=== PATIENT | male | born 1960 | race Caucasian/White ===

== ENCOUNTER 2019-03-18 08:07 | Day surgery (SDC) | payer BC ==
[2019-03-18] MEDS ORDERED: ONDANSETRON 4 MG/2 ML INJ IV PRN (08:57)
[2019-03-18] MEDS ORDERED: fentaNYL 100 MCG/2 ML INJ IV PRN (08:57)
[2019-03-18] MEDS ORDERED: LACTATED RINGERS 1,000 ML IV SCH ×2 (09:00)
--- NOTE | 2019-03-18 09:00 | Anesthesia Day of Surgery ---
Anesthesia Day of Surgery - Day of Surgery Patient Examined: Yes Patient H&P Reviewed: Yes Patient is NPO: Yes
--- NOTE | 2019-03-18 09:04 | Anesthesia Consultation ---
Anesthesia Consult and Med Hx Date of service: 03/18/19 - Airway Anesthetic Teeth Evaluation: Poor ROM Head & Neck: Adequate Mental/Hyoid Distance: Adequate Mallampati Class: Class I - Pulmonary Exam CTA: Yes - Cardiac Exam Cardiac Exam: RRR - Pre-Operative Health Status ASA Pre-Surgery Classification: ASA3 Proposed Anesthetic Plan: General - Pulmonary Hx Smoking: Yes (STOPPED 2007) Hx Asthma: No COPD: No Hx Sleep Apnea: No (SANGEETA PRE SCREEN HIGH RISK) - Cardiovascular System Hx Hypertension: Yes Hx Coronary Artery Disease: No Hx Heart Attack/AMI: No Hx Heart Murmur: No - Central Nervous System Hx Neuromuscular Disorder: No Hx Psychiatric Problems: No - Gastrointestinal Hx Gastroesophageal Reflux Disease: Yes (controlled) - Endocrine Hx End Stage Renal Disease: No Hx Non-Insulin Dependent Diabetes: Yes Hx Hyperthyroidism: No - Hematic Hx Anemia: No Hx Sickle Cell Disease: No - Other Systems Hx Alcohol Use: No Hx Substance Use: No Hx Cancer: No
[2019-03-18] MEDS ORDERED: ceFAZolin/STERILE WATER 2 GM/20 ML SYRINGE IV NR (09:25)
[2019-03-18] MEDS ORDERED: propofoL 200 MG/20 ML VIAL IV ONE (09:28)
[2019-03-18] MEDS ORDERED: fentaNYL 100 MCG/2 ML INJ ONE ×2 (09:28→10:49)
[2019-03-18] MEDS ORDERED: LIDOCAINE MPF (2%) 20 MG/1 ML VIAL 5 ML ONE (09:31)
[2019-03-18] MEDS ORDERED: ONDANSETRON 4 MG/2 ML INJ ONE (10:08)
[2019-03-18] MEDS ORDERED: WATER FOR IRRIG STERILE 1,500 ML BOTTLE IR ONE (10:10)
[2019-03-18] MEDS ORDERED: WATER FOR IRRIG STERILE 2000 ML IR ONE (10:11)
--- NOTE | 2019-03-18 10:37 | Post Operative Note ---
Date of procedure: 03/18/19 Pre-op diagnosis: servere bxo stricture Post-op diagnosis: same Findings: as above Procedure: cysto dviu dil circ Anesthesia: GETA Surgeon: ANNA JEAN BAPTISTE Estimated blood loss: minimal Pathology: list (skin) Specimen disposition: to lab Condition: stable Disposition: PACU
--- NOTE | 2019-03-18 10:38 | Discharge Summary ---
Short Stay Discharge Plan Activity: other (inc fluids no sex ) Weight Bearing Status: Full Weight Bearing Diet: low fat, low cholesterol, low salt Special Instructions: other (poole care ) Durable Medical Equipment Needed Upon Discharge: other (poole ) Follow up with: MANPREET ORDOÑEZ MD [Primary Care Provider] - 7 Days ANNA JEAN BAPTISTE MD [Staff Physician] - 10 Days
--- NOTE | 2019-03-18 11:20 | XRay Report ---
Abdomen one fluoroscopic view. HISTORY: Urethral stricture. FINDINGS: Reported urethral dilatation with catheter placement. Fluoroscopy time: 22 seconds. 4 fluoroscopic images were obtained. Signer Name: Spike Carmona MD Signed: 03/18/2019 11:16 AM Workstation Name: [id number]
--- NOTE | 2019-03-18 12:01 | Operative Report ---
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 POSTOPERATIVE DIAGNOSES: Severe balanitis, xerotica obliterans with meatal stenosis and urethral stricture. PROCEDURE: Urethral dilatation, direct vision internal urethrotomy, cystoscopy with a revision of circumcision and excision of severe scarring around the meatus. SURGEON: Dr. Osorio. ANESTHESIA: General. FINDINGS: This is a gentleman with severe balanitis xerotica obliterans. He now presents for treatment. His meatus tiny the urine sprays. He has stricture disease and severe stenosis. DESCRIPTION OF PROCEDURE: The patient was brought to the operating room and placed on the operating table. Following induction of anesthesia, placed in lithotomy position, prepped and draped in usual sterile fashion. Meatus was very, very small. We placed a wire into the bladder under fluoroscopic guidance and we dilated partially and we were able to do a DVIU per the distal 3 cm with severe scar. After we opened this up, we were able to get the cystoscope in the bladder. We then placed a 20 [place] catheter over the wire. At this point, once this was done, two circumferential incisions were made, one close to the meatus and a large amount of this real thick white scar tissue was excised. We had plenty of skin to move, but the glans is scarred and irritated and erythematous. There were no lesions that were suspicious. The patient tolerated the procedure well. The skin was excised and reconstruction was accomplished with 4-0 and 3-0 chromic. The patient tolerated the procedure well. Minimal blood loss. He was brought to recovery in stable condition. JOB# [id number] ELLA/DOMINICK
[2019-03-18] MEDS: HYDROmorphone 1 MG/1 ML INJ IV PRN ×2 (12:06→12:15)
[2019-03-18] MEDS ORDERED: HYDROcodone/ACETAMINOPHEN 5-325 MG TAB PO PRN (13:30)
[2019-03-18 13:54] VITALS: BP 158/88
--- NOTE | 2019-03-18 23:12 | Post Anesthesia Evaluation ---
- Post Anesthesia Evaluation Patient Participated: Yes Airway Patent: Yes Stable Respiratory Function: Yes Nausea/Vomiting: No Temp > 96.8F: Yes Pain Manageable: Yes Adequeate Hydration: Yes Anesthesia Complications: No Block Receding Appropriately: Not Applicable Patient on Ventilator: No
== END 2019-03-18 08:08 | disposition home or self-care (01) ==
LOC: OR 08:07
PROVIDERS: ATTEND Urology
DX: N35.012 Post-traumatic membranous urethral stricture (principal); N48.0 Leukoplakia of penis; K21.9 Gastro-esophageal reflux disease without esophagitis; E11.9 Type 2 diabetes mellitus without complications; I10 Essential (primary) hypertension; Z71.3 Dietary counseling and surveillance; Z87.891 Personal history of nicotine dependence; Z79.899 Other long term (current) drug therapy
CPT/HCPCS: 52276; 54163; 74018; 82962; 88304; A4217; C1726; C1769; J0690; J1170; J2405; J2704; J3010; J7120

== ENCOUNTER 2019-06-19 21:19 | Inpatient (IN) | payer BC ==
[2019-06-19 22:20] LABS: Basophils # (Auto) 0.1 K/mm3 (0.0-0.1); Basophils % (Auto) 0.4 % (0.0-1.8); Eosinophils # (Auto) 0.3 K/mm3 (0.0-0.4); Eosinophils % (Auto) 1.5 % (0.0-4.3); Hematocrit 37.5 % (35.5-45.6); Hemoglobin 12.4 gm/dl (11.8-15.2); Lymphocytes # (Auto) 4.4 K/mm3 (1.2-5.4); Lymphocytes % (Auto) 24.3 % (13.4-35.0); Mean Corpuscular HGB Conc 33 % (32-34); Mean Corpuscular Volume 83 fl (84-94); Monocytes # (Auto) 1.5 K/mm3 (0.0-0.8); Monocytes % (Auto) 8.5 % (0.0-7.3); Platelet Count 286 K/mm3 (140-440); Red Cell Distribution Width 14.8 % (13.2-15.2)
[2019-06-19 22:43] LABS: Bilirubin,Urine NEG (Negative); Blood,Urine SM (Negative); Color,Urine Yellow (Yellow); Protein,Urine <15 mg/dL mg/dL (Negative)
[2019-06-19 22:44] LABS: Alanine Aminotransferase 15 units/L (7-56); Albumin 3.9 g/dL (3.9-5); BUN/Creatinine Ratio 23; Blood Urea Nitrogen 21 mg/dL (9-20); Calcium 9.4 mg/dL (8.4-10.2); Hemolysis Index 5
[2019-06-19 22:55] LABS: WBC,Urine > 182.0 /HPF (0.0-6.0)
--- NOTE | 2019-06-19 23:06 | Ultrasound Report ---
Scrotal Ultrasound HISTORY: bilateral testicular edema. TECHNIQUE: Grayscale and color imaging performed. COMPARISON: None FINDINGS: Both testicles are normal in size and appearance with preserved blood flow. There are small bilateral hydroceles which are simple in appearance. A 4 mm cyst is seen in the left epididymal head . Right epididymis is normal. IMPRESSION: 1. Small bilateral hydroceles, ultimately nonspecific but could be reactive. 2. Tiny simple left epididymal head cyst, benign. Signer Name: Pierre Munoz MD Signed: 06/19/2019 11:02 PM Workstation Name: [id number]
--- NOTE | 2019-06-19 23:27 | Emergency Department Report ---
ED Male HPI - General Chief complaint: Urogenital-Male Stated complaint: SWOLLEN TESTICLE Time Seen by Provider: 06/19/19 23:12 Source: patient Mode of arrival: Ambulatory Limitations: No Limitations - History of Present Illness Initial comments: Patient is a 58-year-old male that presents emergency room with complaints of testicular pain. Patient states he has had both testicle swollen for 3 days and fever. Patient denies cough. Patient denies shortness of breath. Patient denies chest pain. Patient states the pain is a 10 out of 10. Patient states the pain is worse with movement and better with rest. Patient denies nausea vomiting. Patient denies dysuria. MD Complaint: testicle pain, testicle swelling -: Sudden, days(s) Location: right testicle, left testicle Radiation: none Severity: severe Severity scale (0 -10): 10 Quality: sharp Consistency: constant Improves with: rest Worsens with: palpation, movement swelling. denies: discharge, mass, rash, urinary retention, blood in urine, dysuria, fever, nausea/vomiting, incontinence - Related Data Sexually active: Yes Home Medications Medication Instructions Recorded Confirmed Last Taken Sulfamethoxazole/Trimethoprim 1 tab PO BID 12/01/17 03/18/19 03/17/19 10:00 [Bactrim DS TAB] Tamsulosin [Flomax] 0.4 mg PO QDAY 12/01/17 03/18/19 03/16/19 21:00 Tramadol HCl/Acetaminophen 1 each PO Q6HR PRN 12/01/17 03/18/19 03/17/19 14:00 [Ultracet] glipiZIDE [Glipizide] 5 mg PO QDAY 12/01/17 03/18/19 03/17/19 10:00 Allergies Allergy/AdvReac Type Severity Reaction Status Date / Time No Known Allergies Allergy Verified 06/19/19 21:31 ED Review of Systems ROS: Stated complaint: SWOLLEN TESTICLE Other details as noted in HPI Constitutional: denies: chills, fever Eyes: denies: eye pain, eye discharge, vision change ENT: denies: ear pain, throat pain Respiratory: denies: cough, shortness of breath, wheezing Cardiovascular: denies: chest pain, palpitations Endocrine: no symptoms reported Gastrointestinal: denies: abdominal pain, nausea, diarrhea Genitourinary: as per HPI, other. denies: urgency, dysuria Musculoskeletal: denies: back pain, joint swelling, arthralgia Skin: denies: rash, lesions Neurological: denies: headache, weakness, paresthesias Psychiatric: denies: anxiety, depression Hematological/Lymphatic: denies: easy bleeding, easy bruising ED Past Medical Hx - Past Medical History Previous Medical History?: Yes Hx Hypertension: Yes Hx Heart Attack/AMI: No Hx Congestive Heart Failure: No Hx Diabetes: Yes Hx Sickle Cell Disease: No Hx Arthritis: No Hx Asthma: No Hx COPD: No Hx Tuberculosis: No Hx HIV: No - Surgical History Past Surgical History?: Yes Additional Surgical History: circumcised 03/2019 - Family History Family history: no significant - Social History Smoking Status: Never Smoker Substance Use Type: None - Medications Home Medications: Home Medications Medication Instructions Recorded Confirmed Last Taken Type Sulfamethoxazole/Trimethoprim 1 tab PO BID 12/01/17 03/18/19 03/17/19 10:00 History [Bactrim DS TAB] Tamsulosin [Flomax] 0.4 mg PO QDAY 12/01/17 03/18/19 03/16/19 21:00 History Tramadol HCl/Acetaminophen 1 each PO Q6HR PRN 12/01/17 03/18/19 03/17/19 14:00 History [Ultracet] glipiZIDE [Glipizide] 5 mg PO QDAY 12/01/17 03/18/19 03/17/19 10:00 History ED Physical Exam - General Limitations: No Limitations General appearance: alert, in no apparent distress - Head Head exam: Present: atraumatic, normocephalic - Eye Eye exam: Present: normal appearance - ENT ENT exam: Present: mucous membranes moist - Neck Neck exam: Present: normal inspection - Respiratory Respiratory exam: Present: normal lung sounds bilaterally. Absent: respiratory distress - Cardiovascular Cardiovascular Exam: Present: regular rate, normal rhythm. Absent: systolic murmur, diastolic murmur, rubs, gallop - GI/Abdominal GI/Abdominal exam: Present: soft, normal bowel sounds - Rectal Rectal exam: Present: deferred - exam: Present: testicular tenderness, scrotal swelling, other (Swelling extending into the perineum. Area hard and tender. Nonfluctuant) - Extremities Exam Extremities exam: Present: normal inspection - Back Exam Back exam: Present: normal inspection - Neurological Exam Neurological exam: Present: alert, oriented X3 - Psychiatric Psychiatric exam: Present: normal affect, normal mood - Skin Skin exam: Present: warm, dry, intact, normal color. Absent: rash ED Course - Reevaluation(s) Reevaluation #1: I discussed all results with patient. I discussed plan of care with patient. Patient agrees with plan of care and admission. Patient to be admitted to the hospitalist service. 06/20/19 00:50 - Consultations Consultation #1: General surgery paged. 06/20/19 00:43 I discussed case with Dr. Wu. Dr. Wu recommends admission, IV antibiotics and n.p.o. now. 06/20/19 00:57 Consultation #2: Hospitalist consulted for admission. Hospitalist to admit patient. 06/20/19 01:01 ED Medical Decision Making - Lab Data Result diagrams: 06/19/19 22:00 06/19/19 22:00 - Radiology Data Radiology results: report reviewed Scrotal Ultrasound HISTORY: bilateral testicular edema. TECHNIQUE: Grayscale and color imaging performed. COMPARISON: None FINDINGS: Both testicles are normal in size and appearance with preserved blood flow. There are small bilateral hydroceles which are simple in appearance. A 4 mm cyst is seen in the left epididymal head. Right epididymis is normal. IMPRESSION: 1. Small bilateral hydroceles, ultimately nonspecific but could be reactive. 2. Tiny simple left epididymal head cyst, benign. CT ABDOMEN AND PELVIS WITH CONTRAST HISTORY: MAIN: scrotal swelling, WBC 18K, r/o abscess pain x1day [id number] 100ml. COMPARISON: Scrotal ultrasound from today TECHNIQUE: CT images of the abdomen and pelvis were obtained following admin istration of intravenous contrast. All CT scans at this location are performed using CT dose reduction for ALARA by means of automated exposure control. CONTRAST: 100 ml of intravenous contrast administered. FINDINGS: Lungs/bones: Lung bases are clear. Degenerative changes are present in the spine and pelvis with no acute osseous abnormality identified. Abdomen/pelvis: There is mild nonspecific stranding about the kidneys with lobulation and full- thickness cortical thinning suggesting scarring. Mild urothelial enhancement is seen bilaterally and there is mild circumferential wall thickening involving the urinary bladder which is distended and indented at the base by a slightly enlarged prostate. There is skin induration and a small collection along the inferior margin of the scrotum. The collection measures 2.6 x 1.7 cm on image #200 of series #2. There is mild surrounding soft tissue swelling. Small bilateral hydroceles were better visualized on the comparison u ltrasound. This small collection is essentially at the level of the perineum and adjacent to the anus right of midline. The liver, gallbladder, spleen, pancreas, adrenals, and proximal GI tract appear unremarkable. No acute colonic abnormality identified. The appendix and terminal ileum appear normal. IMPRESSION: 1. Perineal collection as outlined above, most likely an abscess with mild bocanegra rrounding inflammation. 2. Renal and collecting system findings as outlined above. There is likely a component of chronic urinary outlet obstruction with prostatomegaly indenting the bladder base, smooth circumferential bladder wall thickening, and additional renal/collecting system findings as above. - Medical Decision Making Patient is a 58-year-old male that presents emergency room with complaints of testicular and scrotal pain. On exam patient found to have scrotal swelling and cellulitis extending back to the perineum. Patient had an ultrasound done which shows no acute torsion. Patient had a CT with IV contrast. CT shows perinephric stranding, perineal abscess, enlarged prostate with outlet obstruction and inflammation of the bladder. Patient had labs done which showed an elevated WBC rest of labs essentially unremarkable. General surgery consulted for management of the perineal abscess. Patient clinical findings are consistent with pyelonephritis, UTI and scrotal and peritoneal abscess. Patient will require inpatient management for IV antibiotics and consults of our general surgery and possible urologist. Patient given IV antibiotics in the ER along with fluids. - Differential Diagnosis Testicular pain, scrotal abscess, perineal abscess, epididymitis. UTI Critical Care Time: Yes Critical care time in (mins) excluding proc time.: 35 Critical care attestation.: If time is entered above; I have spent that time in minutes in the direct care of this critically ill patient, excluding procedure time. Critical Care Time: 35 minutes ED Disposition Clinical Impression: Testicular pain, unspecified, Scrotal swelling, Perineal abscess, Pyelonephritis Elevated WBC count Qualifiers: Leukocytosis type: unspecified Qualified Code(s): D72.829 - Elevated white blood cell count, unspecified UTI (urinary tract infection) Qualifiers: Urinary tract infection type: acute cystitis Hematuria presence: with hematuria Qualified Code(s): N30.01 - Acute cystitis with hematuria Disposition: OP ADMIT IP TO THIS HOSP Is pt being admited?: Yes Does the pt Need Aspirin: No Condition: Critical Referrals: PRIMARY CARE, [Primary Care Provider] - 3-5 Days Time of Disposition: 00:42
--- NOTE | 2019-06-20 00:14 | Cat Scan Report ---
CT ABDOMEN AND PELVIS WITH CONTRAST HISTORY: MAIN: scrotal swelling, WBC 18K, r/o abscess pain x1day [id number] 100ml. COMPARISON: Scrotal ultrasound from today TECHNIQUE: CT images of the abdomen and pelvis were obtained following administration of intravenous contrast. All CT scans at this location are performed using CT dose reduction for ALARA by means of automated exposure control. CONTRAST: 100 ml of intravenous contrast administered. FINDINGS: Lungs/bones: Lung bases are clear. Degenerative changes are present in the spine and pelvis with no acute osseous abnormality identified. Abdomen/pelvis: There is mild nonspecific stranding about the kidneys with lobulation and full-thick ness cortical thinning suggesting scarring. Mild urothelial enhancement is seen bilaterally and there is mild circumferential wall thickening involving the urinary bladder which is distended and indente d at the base by a slightly enlarged prostate. There is skin induration and a small collection along the inferior margin of the scrotum. The collect ion measures 2.6 x 1.7 cm on image #200 of series #2. There is mild surrounding soft tissue swelling. Small bilateral hydroceles were better visualized on the comparison ultrasound. This small collectio n is essentially at the level of the perineum and adjacent to the anus right of midline. The liver, gallbladder, spleen, pancreas, adrenals, and proximal GI tract appear unremarkable. No acute colonic abnormality identified. The appendix and terminal ileum appear normal. IMPRESSION: 1. Perineal collection as outlined above, most likely an abscess with mild surrounding inflammation. 2. Renal and collecting system findings as outlined above. There is likely a component of chronic uri nary outlet obstruction with prostatomegaly indenting the bladder base, smooth circumferential bladde r wall thickening, and additional renal/collecting system findings as above. Signer Name: Pierre Munoz MD Signed: 06/20/2019 12:09 AM Workstation Name: [id number]
[2019-06-20] MEDS ORDERED: CLINDAMYCIN 300 MG/50 mL 300 MG/50 ML BAG IV ONE (00:40)
[2019-06-20] MEDS ORDERED: SODIUM CHLORIDE 0.9% 1000 ML 1,000 ML IV ONE (00:54)
[2019-06-20] MEDS ORDERED: cefTRIAXone/NS 1 GM/50 ML 1 GM/50 ML BAG IV ONE ×2 (01:02→01:50)
[2019-06-20] MEDS ORDERED: MAGNESIUM HYDROXIDE (MOM) ORAL LIQD UDC PO PRN (01:37)
[2019-06-20] MEDS ORDERED: DEXTROSE 50% IN WATER (25GM) 50 ML SYRINGE IV PRN (01:37)
[2019-06-20] MEDS ORDERED: ONDANSETRON 4 MG/2 ML INJ IV PRN (01:37)
[2019-06-20] MEDS ORDERED: MORPHINE 2 MG/1 ML INJ IV PRN (01:37)
[2019-06-20] MEDS ORDERED: ACETAMINOPHEN 325 MG TAB PO PRN (01:37)
--- NOTE | 2019-06-20 01:47 | History and Physical Report ---
History of Present Illness Date of examination: 06/20/19 Date of admission: 06/20/2019 Chief complaint: Testicular pain Fever History of present illness: 58-year-old male with known history of hypertension and diabetes mellitus presenting to the emergency room today complaining of testicular pain and fever which has been ongoing for about 3 days. Patient denies any hematuria or dysuria, denies any nausea vomiting, no abdominal pain. He denies any chest pain or shortness of breath. On a scale of 10 pain was about 10/10 and is worse on movement. Work-up in the urgency room including CT of the abdomen and pelvis reveals perineal abscess. Past History Past Medical History: diabetes, hypertension Past Surgical History: Other (Circumcision in March 2019) Social history: no significant social history Family history: no significant family history Medications and Allergies Allergies Allergy/AdvReac Type Severity Reaction Status Date / Time No Known Allergies Allergy Verified 06/19/19 21:31 Home Medications Medication Instructions Recorded Confirmed Last Taken Type Sulfamethoxazole/Trimethoprim 1 tab PO BID 12/01/17 03/18/19 03/17/19 10:00 History [Bactrim DS TAB] Tamsulosin [Flomax] 0.4 mg PO QDAY 12/01/17 03/18/19 03/16/19 21:00 History Tramadol HCl/Acetaminophen 1 each PO Q6HR PRN 12/01/17 03/18/19 03/17/19 14:00 History [Ultracet] glipiZIDE [Glipizide] 5 mg PO QDAY 12/01/17 03/18/19 03/17/19 10:00 History Active Meds: Active Medications Acetaminophen (Tylenol) 650 mg PO Q4H PRN PRN Reason: Pain MILD(1-3)/Fever >100.5/ELIZABETH Dextrose (D50w (25gm) Syringe) 50 ml IV Q30MIN PRN; Protocol PRN Reason: Hypoglycemia Sodium Chloride (Nacl 0.9% 1000 Ml) 1,000 mls @ 999 mls/hr IV BOLUS ONE Stop: 06/20/19 01:54 Last Admin: 06/20/19 01:12 Dose: 999 mls/hr Documented by: Sodium Chloride (Nacl 0.9% 1000 Ml) 1,000 mls @ 125 mls/hr IV DIRECT MANISHA Ceftriaxone Sodium (Rocephin/Ns 1 Gm/50 Ml) 1 gm in 50 mls @ 100 mls/hr IV Q24HR MANISHA; Protocol Clindamycin HCl (Cleocin 600 Mg/50 Ml) 600 mg in 50 mls @ 100 mls/hr IV Q8HR MANISHA; Protocol Insulin Human Lispro (Humalog) 0 unit SUB-Q ACHS MANISHA; Protocol Magnesium Hydroxide (Milk Of Magnesia) 30 ml PO Q4H PRN PRN Reason: Constipation Morphine Sulfate (Morphine) 2 mg IV Q4H PRN PRN Reason: Pain, Moderate (4-6) Ondansetron HCl (Zofran) 4 mg IV Q8H PRN PRN Reason: Nausea And Vomiting Sodium Chloride (Sodium Chloride Flush Syringe 10 Ml) 10 ml IV BID MANISHA Sodium Chloride (Sodium Chloride Flush Syringe 10 Ml) 10 ml IV PRN PRN PRN Reason: LINE FLUSH Review of Systems Constitutional: no fever, no chills Ears, nose, mouth and throat: no sore throat, no vertigo Cardiovascular: no chest pain, no orthopnea, no palpitations Respiratory: no cough, no shortness of breath Gastrointestinal: no abdominal pain, no nausea, no vomiting, no diarrhea Genitourinary Male: no dysuria, no hematuria, no urinary frequency, no urinary hesitancy Musculoskeletal: no neck pain, no low back pain Integumentary: no rash, no pruritis Neurological: no headaches, no change in mentation Endocrine: no excessive thirst, no polydipsia, no polyuria Exam - Constitutional Vitals: Temp Pulse Resp BP Pulse Ox 98 F 92 H 16 131/76 97 06/20/19 01:36 06/20/19 01:36 06/20/19 01:36 06/20/19 01:36 06/20/19 01:36 General appearance: Present: no acute distress, well-nourished - EENT Eyes: Present: PERRL, EOM intact ENT: hearing intact, clear oral mucosa, dentition normal - Neck Neck: Present: supple, normal ROM - Respiratory Respiratory effort: normal Respiratory: bilateral: CTA - Cardiovascular Rhythm: regular Heart Sounds: Present: S1 & S2 - Extremities Extremities: no ischemia, pulses intact, pulses symmetrical, No edema, Full ROM Peripheral Pulses: within normal limits - Abdominal General gastrointestinal: Present: soft, non-tender, non-distended, normal bowel sounds Male genitourinary: Present: tender (Tenderness in the posterior aspect of the scrotum, swelling in the perineum) - Integumentary Integumentary: Present: clear, warm, dry - Psychiatric Psychiatric: appropriate mood/affect, intact judgment & insight, cooperative - Neurologic Neurologic: CNII-XII intact, moves all extremities Results - Labs CBC & Chem 7: 06/19/19 22:00 06/19/19 22:00 Labs: Abnormal lab results 06/19/19 06/19/19 06/19/19 Range/Units 22:00 22:00 Unknown WBC 18.2 H (4.5-11.0) K/mm3 MCV 83 L (84-94) fl [place] % (Auto) 8.5 H (0.0-7.3) % [place] # 1.5 H (0.0-0.8) K/mm3 Seg Neutrophils # 11.9 H (1.8-7.7) K/mm3 Sodium 133 L (137-145) mmol/L Carbon Dioxide 21 L (22-30) mmol/L BUN 21 H (9-20) mg/dL Glucose 109 H (75-100) mg/dL Urine WBC (Auto) > 182.0 H (0.0-6.0) /HPF Assessment and Plan - Patient Problems (1) Perineal abscess Current Visit: Yes Status: Acute Plan to address problem: Patient started on empiric IV antibiotics. Consult has been placed to the general surgeon for further evaluation and recommendation. (2) Pyelonephritis Current Visit: Yes Status: Acute Plan to address problem: Patient on empiric IV IV antibiotics. (3) DVT prophylaxis Current Visit: Yes Status: Acute Plan to address problem: Patient on sequential compression device. (4) Full code status Current Visit: Yes Status: Acute
[2019-06-20] MEDS: SODIUM CHLORIDE 0.9% 1000 ML 1,000 ML IV SCH ×2 (01:48→12:09)
[2019-06-20] MEDS ORDERED: SODIUM CHLORIDE 0.9% 1000 ML 1,000 ML ONE (01:51)
[2019-06-20] MEDS: CLINDAMYCIN 600 MG/50 mL 600 MG/50 ML BAG IV SCH ×3 (09:52→21:57)
[2019-06-20] MEDS: INSULIN LISPRO 100 UNIT/ML SUB-Q SCH ×4 (09:53→22:40)
--- NOTE | 2019-06-20 10:53 | Consultation ---
History of Present Illness Consult date: 06/20/19 Chief complaint: Testicular pain - History of present illness History of present illness: 58-year-old male with a past medical history of diabetes, hypertension who presented to the emergency room with testicular and perineal pain for 3 days. The patient states that the area has become very swollen and tender. The pain starts in the perineum and radiates to the scrotum and testicles. He states he has had similar occurrences like this in the past. He was seen by Dr. Valenzuela at that time and underwent an incision and drainage of a perineal abscess along with circumcision for a severe phimosis in 2018. He states that this was performed in the operating room. He denies any drainage from the area. No fevers, chills, chest pain, shortness of breath. 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 Past History Past Medical History: diabetes, hypertension Past Surgical History: Other (Circumcision in March 2019, incision and drainage of perineal abscess) Social history: no significant social history Family history: no significant family history Medications and Allergies Allergies Allergy/AdvReac Type Severity Reaction Status Date / Time No Known Allergies Allergy Verified 06/19/19 21:31 Home Medications Medication Instructions Recorded Confirmed Last Taken Type Sulfamethoxazole/Trimethoprim 1 tab PO BID 12/01/17 03/18/19 03/17/19 10:00 History [Bactrim DS TAB] Tamsulosin [Flomax] 0.4 mg PO QDAY 12/01/17 03/18/19 03/16/19 21:00 History Tramadol HCl/Acetaminophen 1 each PO Q6HR PRN 12/01/17 03/18/19 03/17/19 14:00 History [Ultracet] glipiZIDE [Glipizide] 5 mg PO QDAY 12/01/17 03/18/19 03/17/19 10:00 History Active Meds: Active Medications Acetaminophen (Tylenol) 650 mg PO Q4H PRN PRN Reason: Pain MILD(1-3)/Fever >100.5/ELIZABETH Dextrose (D50w (25gm) Syringe) 50 ml IV Q30MIN PRN; Protocol PRN Reason: Hypoglycemia Sodium Chloride (Nacl 0.9% 1000 Ml) 1,000 mls @ 125 mls/hr IV DIRECT [facility] Last Admin: 06/20/19 01:48 Dose: 125 mls/hr Documented by: Ceftriaxone Sodium (Rocephin/Ns 1 Gm/50 Ml) 1 gm in 50 mls @ 100 mls/hr IV Q24HR@2200 [facility]; Protocol Clindamycin HCl (Cleocin 600 Mg/50 Ml) 600 mg in 50 mls @ 100 mls/hr IV Q8HR [facility]; Protocol Last Admin: 06/20/19 09:52 Dose: 100 mls/hr Documented by: Insulin Human Lispro (Humalog) 0 unit SUB-Q ACHS [facility]; Protocol Last Admin: 06/20/19 09:53 Dose: Not Given Documented by: Magnesium Hydroxide (Milk Of Magnesia) 30 ml PO Q4H PRN PRN Reason: Constipation Morphine Sulfate (Morphine) 2 mg IV Q4H PRN PRN Reason: Pain, Moderate (4-6) Ondansetron HCl (Zofran) 4 mg IV Q8H PRN PRN Reason: Nausea And Vomiting Sodium Chloride (Sodium Chloride Flush Syringe 10 Ml) 10 ml IV BID [facility] Last Admin: 06/20/19 09:53 Dose: 10 ml Documented by: Sodium Chloride (Sodium Chloride Flush Syringe 10 Ml) 10 ml IV PRN PRN PRN Reason: LINE FLUSH Tamsulosin HCl (Flomax) 0.4 mg PO QDAY [facility] Review of Systems All systems: negative (10 point review systems performed negative except for that listed in HPI) Exam Vital Signs Temp Pulse Resp BP Pulse Ox 98 F 92 H 16 131/76 97 06/20/19 01:36 06/20/19 01:36 06/20/19 01:36 06/20/19 01:36 06/20/19 01:36 Narrative exam: Gen.: Awake, alert, oriented 3. No apparent distress ENT: Trachea midline. No lymphadenopathy. No scleral icterus or conjunctival pallor CV: S1, S2 present Respiratory: No audible wheezes Extremities: No clubbing, cyanosis, edema : Cellulitis, induration, fluctuance of perineum with cellulitis extending to the scrotum. No drainage Results - Labs 06/19/19 22:00 06/19/19 22:00 Abnormal lab results 06/19/19 06/19/19 06/19/19 Range/Units 22:00 22:00 Unknown WBC 18.2 H (4.5-11.0) K/mm3 MCV 83 L (84-94) fl [place] % (Auto) 8.5 H (0.0-7.3) % [place] # 1.5 H (0.0-0.8) K/mm3 Seg Neutrophils # 11.9 H (1.8-7.7) K/mm3 Sodium 133 L (137-145) mmol/L Carbon Dioxide 21 L (22-30) mmol/L BUN 21 H (9-20) mg/dL Glucose 109 H (75-100) mg/dL POC Glucose (70-105) Urine WBC (Auto) > 182.0 H (0.0-6.0) /HPF 06/20/19 Range/Units 08:44 WBC (4.5-11.0) K/mm3 MCV (84-94) fl [place] % (Auto) (0.0-7.3) % [place] # (0.0-0.8) K/mm3 Seg Neutrophils # (1.8-7.7) K/mm3 Sodium (137-145) mmol/L Carbon Dioxide (22-30) mmol/L BUN (9-20) mg/dL Glucose (75-100) mg/dL POC Glucose 115 H (70-105) Urine WBC (Auto) (0.0-6.0) /HPF Diabetes panel 06/19/19 Range/Units 22:00 Sodium 133 L (137-145) mmol/L Potassium 4.1 (3.6-5.0) mmol/L Chloride 98.2 (98-107) mmol/L Carbon Dioxide 21 L (22-30) mmol/L BUN 21 H (9-20) mg/dL Creatinine 0.9 (0.8-1.5) mg/dL Glucose 109 H (75-100) mg/dL Calcium 9.4 (8.4-10.2) mg/dL AST 14 (5-40) units/L ALT 15 (7-56) units/L Alkaline Phosphatase 113 (35-129) units/L Total Protein 7.9 (6.3-8.2) g/dL Albumin 3.9 (3.9-5) g/dL Calcium panel 06/19/19 Range/Units 22:00 Calcium 9.4 (8.4-10.2) mg/dL Albumin 3.9 (3.9-5) g/dL Pituitary panel 06/19/19 Range/Units 22:00 Sodium 133 L (137-145) mmol/L Potassium 4.1 (3.6-5.0) mmol/L Chloride 98.2 (98-107) mmol/L Carbon Dioxide 21 L (22-30) mmol/L BUN 21 H (9-20) mg/dL Creatinine 0.9 (0.8-1.5) mg/dL Glucose 109 H (75-100) mg/dL Calcium 9.4 (8.4-10.2) mg/dL Adrenal panel 06/19/19 Range/Units 22:00 Sodium 133 L (137-145) mmol/L Potassium 4.1 (3.6-5.0) mmol/L Chloride 98.2 (98-107) mmol/L Carbon Dioxide 21 L (22-30) mmol/L BUN 21 H (9-20) mg/dL Creatinine 0.9 (0.8-1.5) mg/dL Glucose 109 H (75-100) mg/dL Calcium 9.4 (8.4-10.2) mg/dL Total Bilirubin 0.40 (0.1-1.2) mg/dL AST 14 (5-40) units/L ALT 15 (7-56) units/L Alkaline Phosphatase 113 (35-129) units/L Total Protein 7.9 (6.3-8.2) g/dL Albumin 3.9 (3.9-5) g/dL - Imaging CT scan - abdomen: report reviewed, image reviewed CT scan - pelvis: report reviewed, image reviewed Assessment and Plan 58-year-old male with 1. perineal abscess 2. Diabetes Plan: 1. NPO 2. IVF 3. IV abx 4. HbA1C 5. strict glucose control 6. prn pain control 7. I recommend incision and drainage of the perineal abscess. Due to the locat ion, size, tenderness in the area I recommend performing this in the operating room with anesthesia. I discussed all risk, benefits, alternatives to surgery with the patient and his daughter over the telephone. All questions were answered and consent obtained. Patient is added onto the OR for today. 8. Abscess cultures will be obtained intraoperatively Thank you, please call with questions or concerns Evaluation and treatment of this patient was during the time of the national and state emergency arising from COVID19 coronavirus pandemic. Treatment and procedures performed meet the current and available best practice and guidelines for patient during the COVID pandemic.
[2019-06-20] MEDS ORDERED: HYDROmorphone 1 MG/1 ML INJ IV PRN (14:22)
--- NOTE | 2019-06-20 14:24 | Anesthesia Consultation ---
Anesthesia Consult and Med Hx Date of service: 06/20/19 - Airway Anesthetic Teeth Evaluation: Poor ROM Head & Neck: Adequate Mental/Hyoid Distance: Adequate Mallampati Class: Class III Intubation Access Assessment: Possibly Difficult - Pulmonary Exam CTA: Yes - Cardiac Exam Cardiac Exam: RRR - Pre-Operative Health Status ASA Pre-Surgery Classification: ASA3, Emergency Proposed Anesthetic Plan: MAC - Pulmonary Hx Smoking: Yes (former smoker quit 2007) Hx Respiratory Symptoms: No Hx Sleep Apnea: No (SANGEETA PRE SCREEN HIGH RISK) - Cardiovascular System Hx Hypertension: Yes Hx Heart Attack/AMI: No Hx Percutaneous Transluminal Coronary Angioplasty (PTCA): No - Central Nervous System CVA: No - Gastrointestinal Hx Gastroesophageal Reflux Disease: Yes (controlled) - Endocrine Hx Renal Disease: No Hx Liver Disease: No Hx Non-Insulin Dependent Diabetes: Yes Hx Thyroid Disease: No - Other Systems Hx Obesity: Yes (BMI 33) - Additional Comments Anesthesia Medical History Comments: No hx anesthetic complications. [employer] Installation Manager #[id number] used for interview and consent.
--- NOTE | 2019-06-20 14:24 | Anesthesia Day of Surgery ---
Anesthesia Day of Surgery - Day of Surgery Patient Examined: Yes Patient H&P Reviewed: Yes Patient is NPO: Yes
[2019-06-20] MEDS ORDERED: BUPIVACAINE/PF (0.5%) 5 MG/1 ML 30 ML VIAL INFILTRATI ONE ×2 (14:25→15:15)
[2019-06-20] MEDS ORDERED: LIDOCAINE (1%) 10 MG/1 ML VIAL 20 ML MDV ONE (14:25)
[2019-06-20] MEDS ORDERED: HYDROGEN PEROXIDE 118 ML SOLUTION ONE (14:25)
[2019-06-20] MEDS: LACTATED RINGERS 1,000 ML IV SCH ×2 (14:30→17:22)
[2019-06-20] MEDS ORDERED: LACTATED RINGERS 1,000 ML ONE (14:32)
[2019-06-20] MEDS ORDERED: MIDAZOLAM 2 MG/2 ML INJ ONE (14:37)
[2019-06-20] MEDS ORDERED: LIDOCAINE MPF (2%) 20 MG/1 ML VIAL 5 ML ONE (14:37)
[2019-06-20] MEDS ORDERED: fentaNYL 100 MCG/2 ML INJ ONE (14:38)
[2019-06-20] MEDS ORDERED: propofoL 200 MG/20 ML VIAL IV ONE (14:38)
[2019-06-20] MEDS ORDERED: KETAMINE/STERILE WATER 50 MG/ML SYRINGE ONE (14:38)
[2019-06-20] MEDS ORDERED: MIDAZOLAM 2 MG/2 ML INJ IV NR (15:00)
[2019-06-20] MEDS ORDERED: SODIUM CHLORIDE 0.9% IRR 1,500 ML BOTTLE IR ONE (15:15)
[2019-06-20] MEDS ORDERED: LIDOCAINE (1%) 10 MG/1 ML VIAL 20 ML MDV INFILTRATI ONE (15:15)
--- NOTE | 2019-06-20 15:28 | Post Operative Note ---
Pre-op diagnosis: abscess of perineum Post-op diagnosis: same Findings: 5 cm abscess cavity, approximately 3.5 cm deep with old hematoma and pus. 2 cm of necrotic skin overlying abscess cavity. Procedure: incision and drainage, debridement of abscess of perineum Anesthesia: MAC, local Surgeon: ASHER MADDEN Estimated blood loss: minimal Pathology: list (wound cultures) Specimen disposition: to lab Condition: stable Disposition: PACU
--- NOTE | 2019-06-20 15:53 | Operative Report ---
Operative Report Operative Report: Date of surgery: 06/20/19 Pre-op diagnosis: abscess of perineum Post-op diagnosis: same Findings: 5 cm abscess cavity, approximately 3.5 cm deep with old hematoma and pus. 2 cm of necrotic skin overlying abscess cavity. Procedure: incision and drainage, debridement of abscess of perineum Anesthesia: MAC, local Surgeon: ASHER MADDEN Estimated blood loss: minimal Pathology: list (wound cultures) Specimen disposition: to lab Condition: stable Disposition: PACU HPI and indication: Patient is a 58-year-old male with a past medical history of diabetes and perineal abscess in 2018 that required incision and drainage which was performed by Dr Osorio. The patient presented to the emergency room with 3 days of swelling in the perineal area which extended to the scrotum. He was found to have an abscess of the perineum. Due to the location, induration surrounding the area, tenderness it was recommended that an incision and drainage be performed in the operating room. I discussed all risk, benefits, alternatives to surgery with the patient and questions were answered. Consent obtained. Procedure in detail: Patient was identified in the preoperative area, taken back to the operating room and placed on the operating room table in supine position. After anesthesia was induced the patient was placed in low lithotomy position and the perineum and scrotum were prepped and draped in usual sterile fashion. A timeout was performed. There was an obvious area of induration and fluctuance in the perineum usp between the scrotum and the rectum. The skin overlying the fluctuant area was devitalized and necrotic. Local anesthetic consisting of a 50-50 mixture of 1% lidocaine and 0.25 Marcaine was infiltrated to the skin at the intended incision site and using an 11 blade an incision was made through the devitalized skin. The devitalized skin was also debrided using the blade. Using a gloved finger the abscess cavity was probed and all loculations broken up. Most of the abscess cavity was empty and only contained old clotted blood. There was a tract posteriorly going towards the rectum where a small amount of purulent fluid was expressed. There did not appear to be a connection to the rectum. The scrotum was uninvolved with the abscess cavity. Once all loculations were broken up, the abscess cavity was debrided using a curette. Cultures were obtained. The abscess cavity measured approximately 5 cm and was 3.5 cm deep to the skin. The wound was then irrigated with saline solution. Hemostasis was carefully achieved using pressure. The cavity was then packed with 1 piece of 2 inch iodoform packing. The packing was soaked with local anesthetic solution. The wound was covered with 4 x 4 fluff gauze, ABD pad, tape, mesh underwear. At the end of the case, all sponge, instrument, sharp counts were correct x2. The patient was awoke from anesthesia and taken to PACU in stable condition.
[2019-06-20] MEDS ORDERED: KETOROLAC 30 MG/1 ML INJ ONE (16:00)
[2019-06-20] MEDS ORDERED: ONDANSETRON 4 MG/2 ML INJ ONE (16:00)
--- NOTE | 2019-06-20 16:29 | Post Anesthesia Evaluation ---
- Post Anesthesia Evaluation Patient Participated: Yes Airway Patent: Yes Stable Respiratory Function: Yes Nausea/Vomiting: No Temp > 96.8F: Yes Pain Manageable: Yes Adequeate Hydration: Yes Anesthesia Complications: No
--- NOTE | 2019-06-20 16:52 | Event Note ---
Date: 06/20/19 Patient seen and examined Patient admitted with perineal abscess General surgery consulted, status post incision and drainage, debridement of abscess of perineum by Dr. George Continue empiric antibiotic, follow surgical culture, consult ID Continue current management plan as dictated in the HPI
[2019-06-20] MEDS ORDERED: cefTRIAXone/NS 1 GM/50 ML 1 GM/50 ML BAG IV SCH (22:00)
[2019-06-21 05:36] LABS: Basophils # (Auto) 0.1 K/mm3 (0.0-0.1); Basophils % (Auto) 0.5 % (0.0-1.8); Eosinophils # (Auto) 0.3 K/mm3 (0.0-0.4); Eosinophils % (Auto) 2.7 % (0.0-4.3); Hematocrit 34.5 % (35.5-45.6); Hemoglobin 11.4 gm/dl (11.8-15.2); Lymphocytes % (Auto) 27.8 % (13.4-35.0); Mean Corpuscular HGB Conc 33 % (32-34); Mean Corpuscular Volume 82 fl (84-94); Monocytes # (Auto) 0.8 K/mm3 (0.0-0.8); Monocytes % (Auto) 7.1 % (0.0-7.3); Platelet Count 272 K/mm3 (140-440); Red Blood Count 4.19 M/mm3 (3.65-5.03); Red Cell Distribution Width 14.7 % (13.2-15.2)
[2019-06-21 05:46] LABS: BUN/Creatinine Ratio 21; Blood Urea Nitrogen 17 mg/dL (9-20); Calcium 8.5 mg/dL (8.4-10.2); Hemolysis Index 3
[2019-06-21 05:54] LABS: INR 1.11 (0.87-1.13)
[2019-06-21] MEDS: CLINDAMYCIN 600 MG/50 mL 600 MG/50 ML BAG IV SCH ×2 (05:54→14:00)
[2019-06-21] MEDS: INSULIN LISPRO 100 UNIT/ML SUB-Q SCH ×4 (07:30→21:59)
[2019-06-21] MEDS: SODIUM CHLORIDE 0.9% 1000 ML 1,000 ML IV SCH (09:39)
[2019-06-21] MEDS: TAMSULOSIN 0.4 MG CAP PO SCH (09:39)
--- NOTE | 2019-06-21 09:42 | Consultation ---
History of Present Illness - Reason for Consult Consult date: 06/21/19 recurrent perineal abscesses Requesting physician: HELENA ALFORD - History of Present Illness 58 years old male with history of diabetes, hypertension, severe phimosis and previous perineal abscesses status post OR debridement x2, admitted on 06/20/2019 due to perineal and testicular pain for 3 days. Patient reports acute perineal and testicular pain similar to previous episodes in the past. Denies any nausea, vomiting, diarrhea. Denies any cough, shortness of breath. CT scan showed 2.6 x 1.7 perineal collection with enlarged prostate and distended bladder. Patient was taken to the OR on 06/20/2019 underwent I+D, findings 5 cm abscess cavity, approximately 3.5 cm deep with old hematoma and pus. 2 cm of necrotic skin overlying abscess cavity. Review of Systems: positive in bold print General: fever, chills, malaise Cutaneous: +perineal pain Head: headaches or injury Eyes: changes in vision, eye pain, double vision Ears: ear pain, ear discharge, ringing or hearing loss Nose: nose bleeding, stuffiness Mouth & throat: bleeding gums, horseness, no dental problems, or swollen glands Neck: no pain, node enlargement/lumps, tyroid enlargement or tenderness Respiratory: SOB, cough, BATES, wheezing, sputum, hemoptysis, pleuritic chest p ain Cardiovascular: chest pain, leg edema, cyanosis, BATES, orthopnea Musculoskeletal: edema Gastrointestinal: nausea, vomiting, hematemesis, diarrhea, constipation, melena, bright red blood in stools, fecal incontinence, jaundice Genitourinary/Reproductive: frequent urination, dysuria, hematuria, incontinence Neurogical: seizures, headaches, weakness, paresthesias, loss of speech or vision; memory loss, vertigo, tremors, numbness Psychiatric: stable mood; excessive anxiety, sadness or moodiness Past History Past Medical History: diabetes, hypertension Past Surgical History: Other (Circumcision in March 2019, incision and drainage of perineal abscess) Social history: no significant social history Family history: no significant family history Medications and Allergies Allergies Allergy/AdvReac Type Severity Reaction Status Date / Time No Known Allergies Allergy Verified 06/19/19 21:31 Home Medications Medication Instructions Recorded Confirmed Last Taken Type Sulfamethoxazole/Trimethoprim 1 tab PO BID 12/01/17 06/21/1920 10:00 History [Bactrim DS TAB] Tamsulosin [Flomax] 0.4 mg PO QDAY 12/01/17 06/21/19 03/16/19 21:00 History Tramadol HCl/Acetaminophen 1 each PO Q6HR PRN 12/01/17 06/21/19 03/17/19 14:00 History [Ultracet] glipiZIDE [Glipizide] 5 mg PO QDAY 12/01/17 06/21/19 03/17/19 10:00 History Active Meds: Active Medications Acetaminophen (Tylenol) 650 mg PO Q4H PRN PRN Reason: Pain MILD(1-3)/Fever >100.5/ELIZABETH Dextrose (D50w (25gm) Syringe) 50 ml IV Q30MIN PRN; Protocol PRN Reason: Hypoglycemia Hydromorphone HCl (Dilaudid) 0.5 mg IV Q10MIN PRN PRN Reason: Pain , Severe (7-10) Sodium Chloride (Nacl 0.9% 1000 Ml) 1,000 mls @ 125 mls/hr IV DIRECT [facility] Last Admin: 06/21/19 09:39 Dose: 125 mls/hr Documented by: Ceftriaxone Sodium (Rocephin/Ns 1 Gm/50 Ml) 1 gm in 50 mls @ 100 mls/hr IV Q24HR@2200 [facility]; Protocol Last Admin: 06/20/19 21:56 Dose: 100 mls/hr Documented by: Clindamycin HCl (Cleocin 600 Mg/50 Ml) 600 mg in 50 mls @ 100 mls/hr IV Q8HR [facility]; Protocol Last Admin: 06/21/19 05:54 Dose: 100 mls/hr Documented by: Lactated Ringer's (Lactated Ringers) 1,000 mls @ 100 mls/hr IV DIRECT [facility] Last Admin: 06/20/19 17:22 Dose: 100 mls/hr Documented by: Insulin Human Lispro (Humalog) 0 unit SUB-Q ACHS [facility]; Protocol Last Admin: 06/20/19 22:40 Dose: 2 unit Documented by: Magnesium Hydroxide (Milk Of Magnesia) 30 ml PO Q4H PRN PRN Reason: Constipation Morphine Sulfate (Morphine) 2 mg IV Q4H PRN PRN Reason: Pain, Moderate (4-6) Ondansetron HCl (Zofran) 4 mg IV Q8H PRN PRN Reason: Nausea And Vomiting Sodium Chloride (Sodium Chloride Flush Syringe 10 Ml) 10 ml IV BID [facility] Last Admin: 06/20/19 21:57 Dose: 10 ml Documented by: Sodium Chloride (Sodium Chloride Flush Syringe 10 Ml) 10 ml IV PRN PRN PRN Reason: LINE FLUSH Tamsulosin HCl (Flomax) 0.4 mg PO QDAY [facility] Last Admin: 06/21/19 09:39 Dose: 0.4 mg Documented by: Physical Examination - Physical Exam Narrative exam: General appearance: Alert in NAD Eyes: anicteric sclerae, moist conjunctivae; no lid-lag; PERRLA HENT: Atraumatic; oropharynx clear with moist mucous membranes and no mucosal ulcerations/no oral thrush; normal hard and soft palate. Lungs: CTA, with normal respiratory effort and no intercostal retractions CV: RRR no murmur Abdomen: Soft, non-tender; no masses or hepatosplenomegaly Extremities: no edema, no cyanosis Skin:+marked edema, induration and tenderness in perineum area Psych: Appropriate affect, alert and oriented to person, place and time. Neuro: alert and oriented x 3. Moving all extermities - Constitutional Vitals: Vital Signs Temp Pulse Resp BP Pulse Ox 98.0 F 75 20 134/75 97 06/21/19 07:51 06/21/19 07:51 06/21/19 07:51 06/21/19 07:51 06/21/19 07:51 Temperature -Last 24 Hours Temperature 98.0 F Temperature 98 F Temperature 98 F Temperature 97.6 F Temperature 98.3 F Temperature 98.7 F Temperature 98 F Temperature 99.8 F Temperature 99.8 F Temperature 99.7 F Results - Labs CBC & Chem 7: 06/21/19 04:49 06/21/19 04:49 Labs: Abnormal lab results 06/19/19 06/21/19 06/21/19 Range/Units 22:00 04:49 04:49 Hgb 11.4 L (11.8-15.2) gm/dl Hct 34.5 L (35.5-45.6) % MCV 82 L (84-94) fl MCH 27 L (28-32) pg Glucose 104 H (75-100) mg/dL Hemoglobin A1c 8.4 H (4-6) % Assessment and Plan Cultures: OR cx no growth Assessment: 58 years old male with history of diabetes, hypertension, severe phimosis and previous perineal abscesses status post OR debridement x2, admitted on 06/20/2019 due to perineal and testicular pain for 3 days: #Recurrent perineal abscesses: ? Hydradenitis suppurativa. Status post OR debridement x2 in the past and again on 06/20/2019. OR cultures no growth. #Leukocytosis: On admission, resolved Recommendations: Stop clindamycin and ceftriaxone Start Augmentin 875 mg p.o. twice daily total 10 days until 06/29 Start doxycycline 100 mg p.o. twice daily total 3 weeks until 07/10 ID clinic follow-up in 2 weeks Will follow. Trista Lott MD Infectious Diseases [facility] ([facility] M [phone] O [phone]
--- NOTE | 2019-06-21 11:20 | Progress Note ---
Assessment and Plan 58 yo s/p incision and drainage, debridement of abscess of perineum, POD1 58-year-old male with 1. perineal abscess 2. Diabetes - HbA1C 8.4 Plan: 1. Consistent carb diet 2. dc IVF 3. IV abx, transition to oral per ID 4. strict glucose control 5. prn PO pain control 6. f/u wound cultures 7. wound care consulted -patient seen today with rake operator Tracy 8. starting today, sitz baths BID or more often as needed Will need follow up in wound care clinic upon discharge. Discussed plan in detail with the patient's daughter nAtelmo. Thank you, please call with questions or concerns Evaluation and treatment of this patient was during the time of the national and state emergency arising from COVID19 coronavirus pandemic. Treatment and procedures performed meet the current and available best practice and guidelines for patient during the COVID pandemic. Subjective Date of service: 06/21/19 Narrative: Patient seen and examined. He states there is been some bleeding from the wound. No fevers, chills, chest pain. Pain is a 3 out of 10 in severity. Objective Vital Signs - 12hr 06/21/19 06/21/19 06/21/19 03:43 05:00 07:51 Temperature 98 F 98.0 F Pulse Rate 75 75 75 Respiratory 18 20 Rate Blood Pressure 134/75 Blood Pressure 120/71 [Left] O2 Sat by Pulse 100 97 Oximetry - General physical appearance Narrative Exam: Gen.: Awake, alert, oriented 3. No apparent distress CV: S1, S2 present Respiratory: No audible wheezes Extremities: No clubbing, cyanosis, edema : Perineal dressing removed and 1 piece of iodoform packing removed from wound. The wound is clean with a red wound base. There is no bleeding or drainage, no odor. Wound covered with ABD pad. - Labs 06/21/19 04:49 06/21/19 04:49 Diabetes panel 06/19/19 06/21/19 Range/Units 22:00 04:49 Sodium 138 (137-145) mmol/L Potassium 4.6 (3.6-5.0) mmol/L Chloride 104.1 (98-107) mmol/L Carbon Dioxide 22 (22-30) mmol/L BUN 17 (9-20) mg/dL Creatinine 0.8 (0.8-1.5) mg/dL Glucose 104 H (75-100) mg/dL Hemoglobin A1c 8.4 H (4-6) % Calcium 8.5 (8.4-10.2) mg/dL Calcium panel 06/21/19 Range/Units 04:49 Calcium 8.5 (8.4-10.2) mg/dL Pituitary panel 06/21/19 Range/Units 04:49 Sodium 138 (137-145) mmol/L Potassium 4.6 (3.6-5.0) mmol/L Chloride 104.1 (98-107) mmol/L Carbon Dioxide 22 (22-30) mmol/L BUN 17 (9-20) mg/dL Creatinine 0.8 (0.8-1.5) mg/dL Glucose 104 H (75-100) mg/dL Calcium 8.5 (8.4-10.2) mg/dL Adrenal panel 06/21/19 Range/Units 04:49 Sodium 138 (137-145) mmol/L Potassium 4.6 (3.6-5.0) mmol/L Chloride 104.1 (98-107) mmol/L Carbon Dioxide 22 (22-30) mmol/L BUN 17 (9-20) mg/dL Creatinine 0.8 (0.8-1.5) mg/dL Glucose 104 H (75-100) mg/dL Calcium 8.5 (8.4-10.2) mg/dL
--- NOTE | 2019-06-21 12:36 | Progress Note ---
Assessment and Plan Perineal abscess -Status post I&D on 05/20 -Continue IV antibiotics, surgery following -We will follow culture and adjust to appropriate antibiotics on discharge -Wound care consulted SIRS -Patient presented with leukocytosis, tachycardia and T-max of 99.8 -Likely due to perineal abscess continue antibiotics follow culture UTI with pyelonephritis -Continue IV antibiotics for now Diabetes mellitus type 2 -A1c 8.4, continue consistent carb diet -Tight glycemic control with SSI and long-acting insulin Hypertension, continue home meds Mild hyponatremia, resolved with IV fluid DVT prophylaxis, Lovenox Disposition: We will await for ID recommendation and microbiology result for discharge planning brief History: 58-year-old male with known history of hypertension and diabetes mellitus presenting to the emergency room complaining of testicular pain and fever which has been ongoing for about 3 days. Work-up in the urgency room including CT of the abdomen and pelvis reveals perineal abscess. GS consulted, s/p I and D. Wound cx pending. Physical exam: GENERAL: well-developed and obese male lying on bed appeared to be in no discomfort. HEENT: Normocephalic. Atraumatic. No conjunctival congestion or icterus. Patient has moist mucous membranes. NECK: Supple. Trachea midline. CHEST/LUNGS: Clear to auscultated bilaterally, breathing nonlabored. No wheezes crackles or rhonchi. HEART/CARDIOVASCULAR: Regular in rate and rhythm. S1 and S2 positive. ABDOMEN: Abdomen is soft, nontender. Patient has normal bowel sounds. SKIN: There is no rash. Warm and dry. NEURO: No focal motor deficit. Follows command. MUSCULOSKELETAL: No joint effusion or tenderness. EXTRIMITY: No edema, no cyanosis or clubbing. PSYCH: Cooperative. Subjective Date of service: 06/21/19 Interval history: Patient seen and examined. Medical records and medication list reviewed. No acute event overnight noted by the RN. Patient denies any chest pain or difficulty breathing. Patient is tolerating diet. States that perineal pain has improved with minimal drainage Discussed plan of care at bedside with patient. Objective - Constitutional Vitals: Vital Signs - 12hr 06/21/19 06/21/19 06/21/19 03:43 05:00 07:51 Temperature 98 F 98.0 F Pulse Rate 75 75 75 Respiratory 18 20 Rate Blood Pressure 134/75 Blood Pressure 120/71 [Left] O2 Sat by Pulse 100 97 Oximetry - Labs CBC & Chem 7: 06/21/19 04:49 06/21/19 04:49 Labs: Abnormal lab results 06/21/19 06/21/19 Range/Units 04:49 04:49 Hgb 11.4 L (11.8-15.2) gm/dl Hct 34.5 L (35.5-45.6) % MCV 82 L (84-94) fl MCH 27 L (28-32) pg Glucose 104 H (75-100) mg/dL
[2019-06-21] MEDS ORDERED: AMOXICILLIN/K CLAV 875/125MG TAB PO SCH (18:00)
[2019-06-21] MEDS: DOXYCYCLINE 100 MG CAP PO SCH (21:49)
[2019-06-22] MEDS: INSULIN LISPRO 100 UNIT/ML SUB-Q SCH ×2 (09:41→12:38)
[2019-06-22] MEDS: DOXYCYCLINE 100 MG CAP PO SCH (09:41)
[2019-06-22] MEDS: TAMSULOSIN 0.4 MG CAP PO SCH ×2 (09:41→09:42)
--- NOTE | 2019-06-22 09:50 | Event Note ---
Date: 06/22/19 Patient chart reviewed. Afebrile, VSS. Patient with appointment set up for WCC on 06/25 at 8 am. He may be discharged from surgery standpoint once outpatient antibiotic recs are finalized by ID. Patient to continue sitz baths BID. Verbal instructions given to patient and his daughter. Will s/o
[2019-06-22] MEDS ORDERED: AMOXICILLIN/K CLAV 875/125MG TAB PO SCH (10:00)
[2019-06-22 12:12] VITALS: BP 138/78
--- NOTE | 2019-06-22 13:11 | Discharge Summary ---
Providers - Providers Date of Admission: 06/20/19 00:58 Date of discharge: 06/22/19 Attending physician: HELENA ALFORD 06/20/19 00:56 Consult to Physician [CONS] Routine Comment: Dr. King spoke with Dr. 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 Work-up in the urgency room including CT of the abdomen and pelvis showed 2.6 x 1.7 perineal collection with enlarged prostate and distended bladder. Patient was taken to the OR on 06/20/2019 underwent I+D, findings 5 cm abscess cavity, approximately 3.5 cm deep with old hematoma and pus. 2 cm of necrotic skin overlying abscess cavity. Wound culture grew gram-negative rods. Patient was initially placed on IV antibiotics, ID was consulted and recommended Augmentin 875 mg p.o. twice daily for total 10 days and doxycycline 100 mg p.o. twice daily for total 3 weeks. Patient was then discharged home with outpatient follow-up. He will continue wound care at outpatient clinic. Discharge diagnosis and management: Perineal abscess -Status post I&D on 05/20 - Augmentin 875 mg p.o. twice daily total 10 days until 06/29 and doxycycline 100 mg p.o. twice daily total 3 weeks until 07/10 SIRS, w/o organ dysfunction -Patient presented with leukocytosis, tachycardia and T-max of 99.8 -Likely due to perineal abscess, continue antibiotics follow culture UTI with pyelonephritis - treated with IV antibiotics Diabetes mellitus type 2 -A1c 8.4, continue consistent carb diet -Tight glycemic control with SSI and long-acting insulin Hypertension, continue home meds Mild hyponatremia, resolved with IV fluid DVT prophylaxis, Lovenox Physical exam: GENERAL: well-developed and obese male lying on bed appeared to be in no discomfort. HEENT: Normocephalic. Atraumatic. No conjunctival congestion or icterus. Patient has moist mucous membranes. NECK: Supple. Trachea midline. CHEST/LUNGS: Clear to auscultated bilaterally, breathing nonlabored. No wheezes crackles or rhonchi. HEART/CARDIOVASCULAR: Regular in rate and rhythm. S1 and S2 positive. ABDOMEN: Abdomen is soft, nontender. Patient has normal bowel sounds. SKIN: There is no rash. Warm and dry. NEURO: No focal motor deficit. Follows command. MUSCULOSKELETAL: No joint effusion or tenderness. EXTRIMITY: No edema, no cyanosis or clubbing. PSYCH: Cooperative. Disposition: DC-01 TO HOME OR SELFCARE Time spent for discharge: 34 minutes Core Measure Documentation - Palliative Care Palliative Care/ Comfort Measures: Not Applicable - Core Measures Any of the following diagnoses?: none Exam - Constitutional Vitals: Temp Pulse Resp BP Pulse Ox 98.9 F 79 18 138/78 97 06/22/19 09:00 06/22/19 12:10 06/22/19 12:10 06/22/19 12:10 06/22/19 12:10 Plan Activity: advance as tolerated Weight Bearing Status: Weight Bear as Tolerated Diet: diabetic Wound: per your surgeon's advice Special Instructions: record blood sugar diary Follow up with: PRIMARY CARE, [Primary Care Provider] - 3-5 Days Forms: Work/School Release Form Prescriptions: Amoxicillin/K Clav Tab [Augmentin 875MG TAB] 1 each PO Q12HR #18 tablet Tramadol HCl/Acetaminophen [Ultracet] 1 each PO Q6HR PRN #10 PRN Reason: Pain DOXYCYCLINE Hyclate [Vibramycin CAP] 100 mg PO BID #40 tab
== END 2019-06-22 15:45 | disposition home or self-care (01) | DRG 580 ==
LOC: ED 21:19 → 4A 06-20 00:58
PROVIDERS: ADMIT Internal Medicine Geriatric Medicine; ATTEND Internal Medicine
PROC: 0H99XZZ Drainage of Perineum Skin, External Approach (ICD-10-PCS; principal; 2019-06-20)
DX: L02.215 Cutaneous abscess of perineum (principal); N10 Acute pyelonephritis; R65.10 Systemic inflammatory response syndrome (SIRS) of non-infectious origin without acute organ dysfunction; E87.1 Hypo-osmolality and hyponatremia; N50.89 Other specified disorders of the male genital organs; I10 Essential (primary) hypertension; E11.9 Type 2 diabetes mellitus without complications; D72.829 Elevated white blood cell count, unspecified; R00.0 Tachycardia, unspecified; N47.1 Phimosis; K21.9 Gastro-esophageal reflux disease without esophagitis; E66.9 Obesity, unspecified; Z79.899 Other long term (current) drug therapy; Z87.891 Personal history of nicotine dependence; Z68.33 Body mass index [BMI] 33.0-33.9, adult
CPT/HCPCS: 36415; 74177; 80048; 80053; 81001; 82962; 83036; 83880; 85025; 85610; 85730; 87075; 87116; 87591; 93975; G0378; J0696; J1815; J1885; J2250; J2405; J2704; J3010; J7030; J7120; Q9967

== ENCOUNTER 2019-06-27 09:51 | Outpatient (CLI) | payer BC ==
[2019-06-27] MEDS ORDERED: LIDOCAINE (4%) 40 MG/ML TOPICAL SOLN 50 ML BOTTLE TP ONE (11:00)
== END 2019-06-27 09:52 | disposition home or self-care (01) ==
LOC: WOUND 09:51
PROVIDERS: ATTEND Surgery
DX: T81.89XA Other complications of procedures, not elsewhere classified, initial encounter (principal); E11.9 Type 2 diabetes mellitus without complications; I10 Essential (primary) hypertension; Y83.8 Other surgical procedures as the cause of abnormal reaction of the patient, or of later complication, without mention of misadventure at the time of the procedure; Y92.89 Other specified places as the place of occurrence of the external cause
CPT/HCPCS: 11042; G0463; 99214

== ENCOUNTER 2019-07-04 09:50 | Outpatient (CLI) | payer BC ==
[2019-07-04] MEDS ORDERED: LIDOCAINE (4%) 40 MG/ML TOPICAL SOLN 50 ML BOTTLE TP ONE (09:58)
== END 2019-07-04 09:51 | disposition home or self-care (01) ==
LOC: WOUND 09:50
PROVIDERS: ATTEND Surgery
DX: T81.89XD Other complications of procedures, not elsewhere classified, subsequent encounter (principal); E11.9 Type 2 diabetes mellitus without complications; I10 Essential (primary) hypertension; Y83.8 Other surgical procedures as the cause of abnormal reaction of the patient, or of later complication, without mention of misadventure at the time of the procedure

== ENCOUNTER 2019-07-11 10:01 | Outpatient (CLI) | payer BC ==
[2019-07-11] MEDS ORDERED: LIDOCAINE (4%) 40 MG/ML TOPICAL SOLN 50 ML BOTTLE TP ONE (10:30)
== END 2019-07-11 10:02 | disposition home or self-care (01) ==
LOC: WOUND 10:01
PROVIDERS: ATTEND Surgery
DX: T81.89XD Other complications of procedures, not elsewhere classified, subsequent encounter (principal); E11.9 Type 2 diabetes mellitus without complications; I10 Essential (primary) hypertension; Y83.8 Other surgical procedures as the cause of abnormal reaction of the patient, or of later complication, without mention of misadventure at the time of the procedure

== ENCOUNTER 2019-07-18 14:27 | Outpatient (CLI) | payer BC | END 2019-07-18 14:28 | disposition home or self-care (01) | LOC: WOUND 14:27 | PROVIDERS: ATTEND Surgery | DX: T81.89XD Other complications of procedures, not elsewhere classified, subsequent encounter (principal); E11.9 Type 2 diabetes mellitus without complications; I10 Essential (primary) hypertension; Y83.8 Other surgical procedures as the cause of abnormal reaction of the patient, or of later complication, without mention of misadventure at the time of the procedure | CPT/HCPCS: 99214; G0463 ==

== ENCOUNTER 2019-07-25 13:51 | Outpatient (CLI) | payer BC ==
[2019-07-25] MEDS ORDERED: LIDOCAINE (4%) 40 MG/ML TOPICAL SOLN 50 ML BOTTLE TP ONE (13:56)
== END 2019-07-25 13:52 | disposition home or self-care (01) ==
LOC: WOUND 13:51
PROVIDERS: ATTEND Surgery
DX: T81.89XD Other complications of procedures, not elsewhere classified, subsequent encounter (principal); E11.628 Type 2 diabetes mellitus with other skin complications; E11.9 Type 2 diabetes mellitus without complications; I10 Essential (primary) hypertension; Y83.8 Other surgical procedures as the cause of abnormal reaction of the patient, or of later complication, without mention of misadventure at the time of the procedure
CPT/HCPCS: 99214; G0463

== ENCOUNTER 2019-08-05 14:56 | Outpatient (CLI) | payer BC | END 2019-08-05 14:57 | disposition home or self-care (01) | LOC: WOUND 14:56 | PROVIDERS: ATTEND Surgery | DX: T81.89XD Other complications of procedures, not elsewhere classified, subsequent encounter (principal); E11.628 Type 2 diabetes mellitus with other skin complications; I10 Essential (primary) hypertension; Y83.8 Other surgical procedures as the cause of abnormal reaction of the patient, or of later complication, without mention of misadventure at the time of the procedure | CPT/HCPCS: 99213; G0463 ==

== ENCOUNTER 2019-08-15 13:33 | Outpatient (CLI) | payer BC ==
[2019-08-15] MEDS ORDERED: LIDOCAINE (4%) 40 MG/ML TOPICAL SOLN 50 ML BOTTLE TP ONE (13:34)
== END 2019-08-15 13:34 | disposition home or self-care (01) ==
LOC: WOUND 13:33
PROVIDERS: ATTEND Surgery
DX: T81.89XD Other complications of procedures, not elsewhere classified, subsequent encounter (principal); E11.628 Type 2 diabetes mellitus with other skin complications; I10 Essential (primary) hypertension; Y83.8 Other surgical procedures as the cause of abnormal reaction of the patient, or of later complication, without mention of misadventure at the time of the procedure

== ENCOUNTER 2019-08-22 14:34 | Outpatient (CLI) | payer BC | END 2019-08-22 14:35 | disposition home or self-care (01) | LOC: WOUND 14:34 | PROVIDERS: ATTEND Surgery | DX: T81.89XD Other complications of procedures, not elsewhere classified, subsequent encounter (principal); E11.9 Type 2 diabetes mellitus without complications; I10 Essential (primary) hypertension; Y83.8 Other surgical procedures as the cause of abnormal reaction of the patient, or of later complication, without mention of misadventure at the time of the procedure ==

== ENCOUNTER 2019-09-26 13:36 | Outpatient (CLI) | payer BC | END 2019-09-26 13:37 | disposition home or self-care (01) | LOC: WOUND 13:36 | PROVIDERS: ATTEND Surgery | DX: T81.89XD Other complications of procedures, not elsewhere classified, subsequent encounter (principal); E11.628 Type 2 diabetes mellitus with other skin complications; I10 Essential (primary) hypertension; Y83.8 Other surgical procedures as the cause of abnormal reaction of the patient, or of later complication, without mention of misadventure at the time of the procedure ==

== ENCOUNTER 2019-10-03 14:25 | Outpatient (CLI) | payer BC | END 2019-10-03 14:26 | disposition home or self-care (01) | LOC: WOUND 14:25 | PROVIDERS: ATTEND Surgery | DX: T81.89XD Other complications of procedures, not elsewhere classified, subsequent encounter (principal); E11.628 Type 2 diabetes mellitus with other skin complications; I10 Essential (primary) hypertension; Y83.8 Other surgical procedures as the cause of abnormal reaction of the patient, or of later complication, without mention of misadventure at the time of the procedure ==

== ENCOUNTER 2019-10-17 14:07 | Outpatient (CLI) | payer BC | END 2019-10-17 14:08 | disposition home or self-care (01) | LOC: WOUND 14:07 | PROVIDERS: ATTEND Surgery | DX: T81.89XD Other complications of procedures, not elsewhere classified, subsequent encounter (principal); S31.30XD Unspecified open wound of scrotum and testes, subsequent encounter; E11.628 Type 2 diabetes mellitus with other skin complications; I10 Essential (primary) hypertension; Y83.8 Other surgical procedures as the cause of abnormal reaction of the patient, or of later complication, without mention of misadventure at the time of the procedure; X58.XXXD Exposure to other specified factors, subsequent encounter ==

== ENCOUNTER 2019-10-25 08:00 | Outpatient (CLI) | payer BC | END 2019-10-25 09:00 | disposition home or self-care (01) | LOC: WOUND 08:00 | PROVIDERS: ATTEND Surgery | DX: T81.89XD Other complications of procedures, not elsewhere classified, subsequent encounter (principal); S31.30XD Unspecified open wound of scrotum and testes, subsequent encounter; E11.628 Type 2 diabetes mellitus with other skin complications; I10 Essential (primary) hypertension; Y83.8 Other surgical procedures as the cause of abnormal reaction of the patient, or of later complication, without mention of misadventure at the time of the procedure; X58.XXXD Exposure to other specified factors, subsequent encounter | CPT/HCPCS: 99213; G0463 ==

== ENCOUNTER 2019-10-30 11:26 | Outpatient (CLI) | payer BC | END 2019-10-30 11:27 | disposition home or self-care (01) | LOC: WOUND 11:26 | PROVIDERS: ATTEND Surgery | DX: T81.89XD Other complications of procedures, not elsewhere classified, subsequent encounter (principal); S31.30XD Unspecified open wound of scrotum and testes, subsequent encounter; E11.628 Type 2 diabetes mellitus with other skin complications; I10 Essential (primary) hypertension; Y83.8 Other surgical procedures as the cause of abnormal reaction of the patient, or of later complication, without mention of misadventure at the time of the procedure; X58.XXXD Exposure to other specified factors, subsequent encounter | CPT/HCPCS: 99213; G0463 ==

== ENCOUNTER 2019-11-06 09:27 | Outpatient (CLI) | payer BC ==
[2019-11-06] MEDS ORDERED: LIDOCAINE (4%) 40 MG/ML TOPICAL SOLN 50 ML BOTTLE TP NR (09:41)
== END 2019-11-06 09:28 | disposition home or self-care (01) ==
LOC: WOUND 09:27
PROVIDERS: ATTEND Surgery
DX: T81.89XD Other complications of procedures, not elsewhere classified, subsequent encounter (principal); S31.30XD Unspecified open wound of scrotum and testes, subsequent encounter; E11.628 Type 2 diabetes mellitus with other skin complications; I10 Essential (primary) hypertension; Y83.8 Other surgical procedures as the cause of abnormal reaction of the patient, or of later complication, without mention of misadventure at the time of the procedure; X58.XXXD Exposure to other specified factors, subsequent encounter
CPT/HCPCS: 99213; G0463

== ENCOUNTER 2019-11-13 09:41 | Outpatient (CLI) | payer BC ==
[2019-11-13] MEDS ORDERED: LIDOCAINE (4%) 40 MG/ML TOPICAL SOLN 50 ML BOTTLE TP ONE (10:04)
== END 2019-11-13 09:42 | disposition home or self-care (01) ==
LOC: WOUND 09:41
PROVIDERS: ATTEND Surgery
DX: T81.89XD Other complications of procedures, not elsewhere classified, subsequent encounter (principal); S31.30XD Unspecified open wound of scrotum and testes, subsequent encounter; E11.628 Type 2 diabetes mellitus with other skin complications; I10 Essential (primary) hypertension; Y83.8 Other surgical procedures as the cause of abnormal reaction of the patient, or of later complication, without mention of misadventure at the time of the procedure; X58.XXXD Exposure to other specified factors, subsequent encounter
CPT/HCPCS: 99215; G0463

== ENCOUNTER 2019-12-25 14:03 | Outpatient (CLI) | payer BC ==
[2019-12-25] MEDS ORDERED: LIDOCAINE (4%) 40 MG/ML TOPICAL SOLN 50 ML BOTTLE TP ONE (15:44)
== END 2019-12-25 14:04 | disposition home or self-care (01) ==
LOC: WOUND 14:03
PROVIDERS: ATTEND Surgery
DX: T81.89XD Other complications of procedures, not elsewhere classified, subsequent encounter (principal); S31.30XD Unspecified open wound of scrotum and testes, subsequent encounter; E11.628 Type 2 diabetes mellitus with other skin complications; I10 Essential (primary) hypertension; Y83.8 Other surgical procedures as the cause of abnormal reaction of the patient, or of later complication, without mention of misadventure at the time of the procedure; X58.XXXD Exposure to other specified factors, subsequent encounter
CPT/HCPCS: 99214; G0463

== ENCOUNTER 2020-07-13 02:51 | Inpatient (IN) | payer BC ==
[2020-07-13 04:25] LABS: Hematocrit 38.7 % (35.5-45.6); Hemoglobin 13.4 gm/dl (11.8-15.2); Mean Corpuscular HGB Conc 35 % (32-34); Mean Corpuscular Volume 86 fl (84-94); Platelet Count 243 K/mm3 (140-440); Red Blood Count 4.52 M/mm3 (3.65-5.03)
[2020-07-13 05:06] LABS: BUN/Creatinine Ratio 22; Blood Urea Nitrogen 24 mg/dL (9-20); Calcium 8.9 mg/dL (8.4-10.2); Hemolysis Index 19
[2020-07-13] MEDS ORDERED: LACTATED RINGERS 1,000 ML IV ONE ×2 (06:45→09:11)
[2020-07-13] MEDS ORDERED: HYDROmorphone 1 MG/1 ML INJ IV ONE ×2 (06:45→09:12)
[2020-07-13] MEDS ORDERED: ACETAMINOPHEN 500 MG TAB PO ONE (06:45)
--- NOTE | 2020-07-13 06:45 | Emergency Department Report ---
ED General Adult HPI - General Chief complaint: Fever Stated complaint: CHILLS PUI?: No Time Seen by Provider: 07/13/20 06:23 Source: patient, RN notes reviewed, old records reviewed Mode of arrival: Ambulatory Limitations: No Limitations - History of Present Illness Initial comments: The patient was evaluated in the emergency department for symptoms described in the history of present illness. He/she was evaluated in the context of the global COVID-19 pandemic, which necessitated consideration that the patient might be at risk for infection with the virus that causes COVID-19. Institutional protocols and algorithms that pertain to the evaluation of patients at risk for COVID-19 are in a state of rapid change based on information released by regulatory bodies including the CDC and federal and state organizations. These policies and algorithms were followed during the patient's care in the emergency department. Please note that these policies, procedures and recommendations changed on a rapid basis. Please note that this provider is conversant in Serbian. The patient is a 59-year-old gentleman, with a history of type 2 diabetes, recent hemoglobin A1c 8.4, urinary tract infection, with pyelonephritis, SIRS without organ dysfunction, and perianal abscess, who had incision and drainage in 2019, discharged on Augmentin, and doxycycline, cultures grew out gram- negative rods in 2020, who typically follows with Dr. Nova of general surgery. As per triage nursing documentation, the patient did endorse MSM activities. He presents to the ER today with 4 days of right medial/inferior gluteal cheek pain, redness, swelling, chills, and urinary hesitancy. He has a mild headache. No neck pain. No chest pain. No abdominal pain. No nausea, vomiting or diarrhea. No loss of taste or smell. He has completed his Covid vaccination series. His gluteal/rectal pain does not radiate anywhere, increases with palpation and decreases with rest and position. -: Gradual, days(s) Location: buttocks, right Radiation: non-radiation Severity scale (0 -10): 4 Quality: aching Consistency: intermittent Improves with: rest Worsens with: movement - Related Data Home Medications Medication Instructions Recorded Confirmed Last Taken Tamsulosin [Flomax] 0.4 mg PO QDAY 12/01/17 10/24/19 10/23/19 glipiZIDE [Glipizide] 5 mg PO QDAY 12/01/17 10/24/19 10/23/19 Previous Rx's Medication Instructions Recorded Last Taken Type Amoxicillin/K Clav Tab [Augmentin 1 each PO Q12HR #18 tablet 06/22/19 10/23/19 Rx 875MG TAB] DOXYCYCLINE Hyclate [Vibramycin 100 mg PO BID #40 tab 06/22/19 10/23/19 Rx CAP] oxyCODONE /ACETAMINOPHEN [Percocet 1 tab PO Q4HR PRN #40 tab 10/24/19 Unknown Rx 5/325] Allergies Allergy/AdvReac Type Severity Reaction Status Date / Time No Known Allergies Allergy Verified 06/19/19 21:31 ED Review of Systems ROS: Stated complaint: CHILLS Other details as noted in HPI Constitutional: fever, malaise, weakness Eyes: denies: eye discharge ENT: denies: epistaxis Respiratory: denies: cough Cardiovascular: denies: chest pain Gastrointestinal: denies: abdominal pain Genitourinary: as per HPI, other (Hesitancy). denies: testicular pain Musculoskeletal: denies: back pain Skin: lesions (Gluteal lesion) Neurological: denies: weakness Hematological/Lymphatic: denies: easy bleeding ED Past Medical Hx - Past Medical History Previous Medical History?: Yes Hx Hypertension: Yes Hx Heart Attack/AMI: No Hx Congestive Heart Failure: No Hx Diabetes: Yes Hx GERD: Yes (WELL CONTROLLED) Hx Liver Disease: No Hx Renal Disease: No Hx Arthritis: No Hx Asthma: No Hx COPD: No Hx Tuberculosis: No Hx HIV: No Additional medical history: anal fissures. anal abcess - Surgical History Past Surgical History?: Yes Additional Surgical History: circumcised 03/2019. anal sx x 4 - Social History Smoking Status: Former Smoker Substance Use Type: None - Medications Home Medications: Home Medications Medication Instructions Recorded Confirmed Last Taken Type Tamsulosin [Flomax] 0.4 mg PO QDAY 12/01/17 10/24/19 10/23/19 History glipiZIDE [Glipizide] 5 mg PO QDAY 12/01/17 10/24/19 10/23/19 History Amoxicillin/K Clav Tab [Augmentin 1 each PO Q12HR #18 tablet 06/22/19 10/24/19 10/23/19 Rx 875MG TAB] DOXYCYCLINE Hyclate [Vibramycin 100 mg PO BID #40 tab 06/22/19 10/24/19 10/23/19 Rx CAP] oxyCODONE /ACETAMINOPHEN [Percocet 1 tab PO Q4HR PRN #40 tab 10/24/19 Unknown Rx 5/325] ED Physical Exam - General Limitations: No Limitations General appearance: alert, obese - Head Head exam: Present: atraumatic, normocephalic - Eye Eye exam: Present: normal appearance, EOMI. Absent: nystagmus - ENT ENT exam: Present: normal exam, normal orophraynx, mucous membranes moist, normal external ear exam - Neck Neck exam: Present: normal inspection, full ROM. Absent: tenderness, meningismus - Respiratory Respiratory exam: Present: normal lung sounds bilaterally. Absent: respiratory distress, wheezes, rales, rhonchi, stridor, decreased breath sounds - Cardiovascular Cardiovascular Exam: Present: regular rate, normal rhythm, normal heart sounds. Absent: bradycardia, tachycardia, irregular rhythm, systolic murmur, diastolic murmur, rubs, gallop - GI/Abdominal GI/Abdominal exam: Present: soft. Absent: distended, tenderness, guarding, rebound, rigid, pulsatile mass - Rectal Rectal exam: Present: other (Packing is noted on the right gluteal cheek, inferior, medial distribution. There is some gluteal induration and tenderness, there is no significant peroneum induration or tenderness.). Absent: normal inspection (Chaperoned by Jailene Kelly) - exam: Present: normal inspection, other (Chaperoned by Jailene Kelly). Absent: testicular tenderness External exam: Present: normal external exam (There is normal testicular lie. There is normal cremasteric reflex. There is no testicular tenderness. There is no testicular swelling) - Extremities Exam Extremities exam: Present: normal inspection, full ROM, other (2+ pulses noted in the bilateral upper and lower extremities. There is no palpable cord. negative Homans sign. Muscular compartments are soft. The pelvis is stable.). Absent: calf tenderness - Back Exam Back exam: Present: normal inspection, full ROM. Absent: tenderness, CVA tenderness (R), CVA tenderness (L), paraspinal tenderness, vertebral tenderness - Neurological Exam Neurological exam: Present: alert, normal gait, other (No facial droop. Tongue midline. Extraocular movements intact bilaterally. Facial sensation intact to light touch in V1, V2, V3 distribution bilaterally. 5 and a 5 strength in 4 extremities. Sensation intact to light touch in 4 extremities.). Absent: motor sensory deficit - Psychiatric Psychiatric exam: Present: normal affect, normal mood - Skin Skin exam: Present: warm, dry, intact, normal color. Absent: rash ED Course Vital Signs 07/13/20 07/13/20 07/13/20 03:16 07:41 08:31 Temperature 99.3 F Pulse Rate 135 H 86 84 Respiratory 24 18 19 Rate Blood Pressure 116/65 Blood Pressure 127/66 122/68 [Right] O2 Sat by Pulse 96 96 97 Oximetry O2 Sat by Pulse Oximetry [ Digit-Finger] 07/13/20 07/13/20 07/13/20 09:01 09:12 09:31 Temperature Pulse Rate 83 91 H Respiratory 19 18 Rate Blood Pressure 118/71 118/71 Blood Pressure [Right] O2 Sat by Pulse 97 97 Oximetry O2 Sat by Pulse 99 Oximetry [ Digit-Finger] - Reevaluation(s) Reevaluation #1: 07/13/20 06:49 Differential diagnosis, including but not limited to: Abscess, cellulitis, phlegmon, deep space infection Assessment and plan: 59-year-old gentleman with chills, fever, resolved tachyc ardia, low-grade temperature here in the emergency room, history of poorly controlled diabetes, with known history of perennial abscess. Place patient on front desk monitor, start IV fluids, pain medication, nothing by mouth status, obtain CT scan of the pelvis, reassess after initial data points, anticipate discussion with his general surgeon. 07/13/20 09:11 CT scan pelvis demonstrates prostatic abscesses. Between tachycardia and leukocytosis, patient meets SIRS/sepsis criteria. IV fluids ordered, blood cultures and lactic acid ordered. Have requested that special education secretary page out to urology on-call to discuss. 07/13/20 10:06 Patient resting comfortably in stretcher at this time. Discussed history, physical, pertinent laboratory studies and imaging studies with neurology on- call, Dr. Dipesh Jordan His group can follow in consultation. [facility] physician, Dr. Hernan Ruiz To admit to the internal medicine service. Medical decision makin-year-old gentleman, relatively immune compromised with history of poorly controlled diabetes, presenting with sepsis, but not septic shock, secondary to prostatic abscesses, found to have gas in bladder, likely secondary to gas-forming organisms, meets criteria for admission hospitalization for IV fluids, antibiotics, and supportive care. - Pulse Oximetry Interpretation Digit-Finger Initial Pulse Oximetry Readin O2 Sat by Pulse Oximetry: 99 Actions Taken: none ED Medical Decision Making - Lab Data Result diagrams: 07/13/20 03:49 07/13/20 03:49 Vital Signs 07/13/20 03:16 Temperature 99.3 F Pulse Rate 135 H Respiratory 24 Rate Blood Pressure 127/66 [Right] O2 Sat by Pulse 96 Oximetry Lab Results 07/13/20 07/13/20 Range/Units 03:49 03:49 WBC 16.0 H (4.5-11.0) K/mm3 RBC 4.52 (3.65-5.03) M/mm3 Hgb 13.4 (11.8-15.2) gm/dl Hct 38.7 (35.5-45.6) % MCV 86 (84-94) fl MCH 30 (28-32) pg MCHC 35 H (32-34) % RDW 14.0 (13.2-15.2) % Plt Count 243 (140-440) K/mm3 Sodium 132 L (137-145) mmol/L Potassium 4.6 (3.6-5.0) mmol/L Chloride 95.1 L (98-107) mmol/L Carbon Dioxide 24 (22-30) mmol/L Anion Gap 18 mmol/L BUN 24 H (9-20) mg/dL Creatinine 1.1 (0.8-1.3) mg/dL Estimated GFR > 60 ml/min BUN/Creatinine Ratio 22 % Glucose 182 H (75-100) mg/dL Calcium 8.9 (8.4-10.2) mg/dL - Radiology Data Radiology results: report reviewed, image reviewed CT PELVIS WITH CONTRAST HISTORY: Rectal and gluteal pain, swelling and tenderness TECHNIQUE: Helical CT following 100 cc of Omnipaque 300 intravenously. Sagittal and coronal reformatted images. All CT scans at this location are performed using CT dose reduction for ALARA by means of automated exposure control. COMPARISON: 06/19/2019. FINDINGS: The previously described perianal abscess has resolved or been surgically evacuated. There are 3 low density collections within the prostate gland on today's exam. The largest collection measures 2.4 x 1.5 cm in the right posterior prostate gland. There are 2 smaller subcentimeter collections in the right and left anterior prostate. A larger collection near the base of the prostate /phallus measures 2.9 x 1.9 x 2.4 cm. These are concerning for prostate abscesses. The bladder is moderately distended and contains gas. There is mild bladder wall thickening which is unchanged and may represent trabeculation. A cystitis is difficult to exclude. The visualized bowel loops in the pelvis are unremarkable. No intra-abdominal fluid collection, mass or adenopathy. The bony pelvis is intact. IMPRESSION: The right perianal abscess has resolved since 06/19/2019. There are multiple new collections within and possibly just inferior to the prostate gland as described concerning for abscesses. The bladder is moderately distended and contains gas with wall thickening. This may represent trabeculation. A cystitis cannot be excluded. Please correlate with the patient's clinical presentation. Signer Name: Roderick Brantley Jr, MD Signed: 07/13/2020 7:41 AM Workstation Name: [id number] Critical Care Time: Yes Critical care time in (mins) excluding proc time.: 35 Critical care attestation.: If time is entered above; I have spent that time in minutes in the direct care of this critically ill patient, excluding procedure time. ED Disposition Clinical Impression: SIRS (systemic inflammatory response syndrome), Prostatic abscess Disposition: OP ADMIT IP TO THIS HOSP Is pt being admited?: Yes Does the pt Need Aspirin: No Condition: Good Referrals: PRIMARY CARE, [Primary Care Provider] - 3-5 Days
--- NOTE | 2020-07-13 08:45 | Cat Scan Report ---
CT PELVIS WITH CONTRAST HISTORY: Rectal and gluteal pain, swelling and tenderness TECHNIQUE: Helical CT following 100 cc of Omnipaque 300 intravenously. Sagittal and coronal reformatt ed images. All CT scans at this location are performed using CT dose reduction for ALARA by means of automated exposure control. COMPARISON: 06/19/2019. FINDINGS: The previously described perianal abscess has resolved or been surgically evacuated. There are 3 low density collections within the prostate gland on today's exam. The largest collection measu res 2.4 x 1.5 cm in the right posterior prostate gland. There are 2 smaller subcentimeter collection s in the right and left anterior prostate. A larger collection near the base of the prostate /phallus measures 2.9 x 1.9 x 2.4 cm. These are concerning for prostate abscesses. The bladder is moderately distended and contains gas. There is mild bladder wall thickening which is unchanged and may represen t trabeculation. A cystitis is difficult to exclude. The visualized bowel loops in the pelvis are unr emarkable. No intra-abdominal fluid collection, mass or adenopathy. The bony pelvis is intact. IMPRESSION: The right perianal abscess has resolved since 06/19/2019. There are multiple new collectio ns within and possibly just inferior to the prostate gland as described concerning for abscesses. The bladder is moderately distended and contains gas with wall thickening. This may represent trabeculat ion. A cystitis cannot be excluded. Please correlate with the patient's clinical presentation. Signer Name: Roderick Brantley Jr, MD Signed: 07/13/2020 8:41 AM Workstation Name: [id number]
[2020-07-13 08:50] LABS: Bacteria,Urine 4+ /HPF (Negative); Bilirubin,Urine NEG (Negative); Blood,Urine SM (Negative); Color,Urine Yellow (Yellow); Mucus,Urine FEW /HPF; Urobilinogen,Urine < 2.0 mg/dL (<2.0)
[2020-07-13 08:58] LABS: WBC,Urine > 182.0 /HPF (0.0-6.0)
[2020-07-13] MEDS ORDERED: DEXTROSE 50% IN WATER (25GM) 50 ML SYRINGE IV PRN (10:30)
--- NOTE | 2020-07-13 11:25 | History and Physical Report ---
History of Present Illness Date of examination: 07/13/20 Date of admission: 07/13/20 10:08 Chief complaint: Rectal pain History of present illness: 59-year-old male with medical history significant for diabetes mellitus, perineal abscess status post surgery in 2019 presented to the emergency department with complaints of pain in the rectal area for the last 4 days. He said pain was sharp and 10 out of 10 intensity, with no radiation. Patient said he had also discharge from the penis. Patient said he has fever, chills. Patient denied dysuria, no blood in urine. Work-up in the emergency department showed that he has elevated WBC count and CAT scan of the pelvis showed prostate abscess. Urology was consulted in the emergency department and will see the patient as a consult. Patient was started with IV Levaquin, pain medications and admitted to the floor. REVIEW OF SYSTEMS: GENERAL: no weight change, no fatigue, no fever HEAD: no head ache EYES: no blurry vision, no acute visual loss EARS: no hearing loss, no discharge, no earache NOSE: no stuffiness, no sneezing, no discharge MOUTH, THROAT AND NECK: no bleeding gums, no sore throat, no swollen neck CARDIAC: no palpitations, no dyspnea on exertion, no orthopnea, no PND, no edema, no chest pain RESPIRATORY: no shortness of breath, no wheeze, no cough, no sputum, no hemoptysis, no asthma GI: no decreased appetite, no nausea, no vomiting, no dysphagia, no diarrhea, no constipation URINARY: No urgency, hematuria, dysuria or frequency. MUSCULOSKELETAL: no muscle weakness, no pain, no joint stiffness NEUROLOGIC: no loss of sensation/numbness, no tingling, no tremors, no weakness/paralysis HEMATOLOGIC: no anemia, no easy bruising SKIN: no rashes ENDOCRINE: no heat/cold intolerance, no polyuria, no polydipsia, no thyroid problems, no diabetes PSYCHIATRIC: no anxiety, no depression, no suicidal ideations Past History Past Medical History: diabetes, other (Perianal abscess) Past Surgical History: Other (Incision and drainage of the perianal abscess) Social history: full code. denies: smoking, alcohol abuse, prescription drug abuse, IV drug use Family history: diabetes (Mother\) Medications and Allergies Allergies Allergy/AdvReac Type Severity Reaction Status Date / Time No Known Allergies Allergy Verified 06/19/19 21:31 Home Medications Medication Instructions Recorded Confirmed Last Taken Type Tamsulosin [Flomax] 0.4 mg PO QDAY 12/01/17 10/24/19 10/23/19 History glipiZIDE [Glipizide] 5 mg PO QDAY 12/01/17 10/24/19 10/23/19 History Amoxicillin/K Clav Tab [Augmentin 1 each PO Q12HR #18 tablet 06/22/19 10/24/19 10/23/19 Rx 875MG TAB] DOXYCYCLINE Hyclate [Vibramycin 100 mg PO BID #40 tab 06/22/19 10/24/19 10/23/19 Rx CAP] oxyCODONE /ACETAMINOPHEN [Percocet 1 tab PO Q4HR PRN #40 tab 10/24/19 Unknown Rx 5/325] Active Meds: Active Medications Dextrose (Dextrose 50% In Water (25gm) 50 Ml Syringe) 50 ml IV Q30MIN PRN; Protocol PRN Reason: Hypoglycemia Levofloxacin/Dextrose (Levaquin 750mg/150ml) 750 mg in 150 mls @ 100 mls/hr IV Q24H MANISHA; Protocol Insulin Human Lispro (Insulin Lispro 100 Unit/Ml) 0 unit SUB-Q ACHS MANISHA; Protocol Morphine Sulfate (Morphine 2 Mg/1 Ml Inj) 2 mg IV Q4H PRN PRN Reason: Pain, Moderate (4-6) Exam - Physical Exam Narrative exam: Not in cardiopulmonary distress. The patient appeared well nourished and normally developed. Vital signs as documented. Head exam is unremarkable. No scleral icterus . Neck is without jugular venous distension, thyromegaly, or carotid bruits. Lungs are clear to auscultation. Cardiac exam reveals regular rate and Rhythm. Abdominal exam reveals normal bowel sounds, nontender, no organomegaly. Rectal exam deferred. Extremities are nonedematous and both femoral and pedal pulses are normal. VEGETABLE VENDOR: Alert and oriented 3. No focal weakness. - Constitutional Vitals: Temp Pulse Resp BP Pulse Ox 99.3 F 91 H 18 118/71 99 07/13/20 03:16 07/13/20 09:31 07/13/20 09:31 07/13/20 09:31 07/13/20 10:07 Results - Labs CBC & Chem 7: 07/13/20 03:49 07/13/20 03:49 Labs: Laboratory Last Values WBC 16.0 K/mm3 (4.5-11.0) H 07/13/20 03:49 RBC 4.52 M/mm3 (3.65-5.03) 07/13/20 03:49 Hgb 13.4 gm/dl (11.8-15.2) 07/13/20 03:49 Hct 38.7 % (35.5-45.6) 07/13/20 03:49 MCV 86 fl (84-94) 07/13/20 03:49 MCH 30 pg (28-32) 07/13/20 03:49 MCHC 35 % (32-34) H 07/13/20 03:49 RDW 14.0 % (13.2-15.2) 07/13/20 03:49 Plt Count 243 K/mm3 (140-440) 07/13/20 03:49 Sodium 132 mmol/L (137-145) L 07/13/20 03:49 Potassium 4.6 mmol/L (3.6-5.0) 07/13/20 03:49 Chloride 95.1 mmol/L (98-107) L 07/13/20 03:49 Carbon Dioxide 24 mmol/L (22-30) 07/13/20 03:49 Anion Gap 18 mmol/L 07/13/20 03:49 BUN 24 mg/dL (9-20) H 07/13/20 03:49 Creatinine 1.1 mg/dL (0.8-1.3) 07/13/20 03:49 Estimated GFR > 60 ml/min 07/13/20 03:49 BUN/Creatinine Ratio 22 % 07/13/20 03:49 Glucose 182 mg/dL (75-100) H 07/13/20 03:49 Hemoglobin A1c 9.2 % (4-6) H 07/13/20 03:49 Lactic Acid 1.20 mmol/L (0.7-2.0) 07/13/20 08:58 Calcium 8.9 mg/dL (8.4-10.2) 07/13/20 03:49 Magnesium 2.20 mg/dL (1.7-2.3) 07/13/20 07:25 Total Creatine Kinase 53 units/L (55-170) L 07/13/20 07:25 Urine Color Yellow (Yellow) 07/13/20 Unknown Urine Turbidity Cloudy (Clear) 07/13/20 Unknown Urine pH 6.0 (5.0-7.0) 07/13/20 Unknown Ur Specific [place] 1.011 (1.003-1.030) 07/13/20 Unknown Urine Protein 30 mg/dl mg/dL (Negative) 07/13/20 Unknown Urine Glucose (UA) 50 mg/dL (Negative) 07/13/20 Unknown Urine Ketones Neg mg/dL (Negative) 07/13/20 Unknown Urine Blood Sm (Negative) 07/13/20 Unknown Urine Nitrite Neg (Negative) 07/13/20 Unknown Urine Bilirubin Neg (Negative) 07/13/20 Unknown Urine Urobilinogen < 2.0 mg/dL (<2.0) 07/13/20 Unknown Ur Leukocyte Esterase Lg (Negative) 07/13/20 Unknown Urine WBC (Auto) > 182.0 /HPF (0.0-6.0) H 07/13/20 Unknown Urine RBC (Auto) 24.0 /HPF (0.0-6.0) 07/13/20 Unknown U Epithel Cells (Auto) 1.0 /HPF (0-13.0) 07/13/20 Unknown Urine Bacteria (Auto) 4+ /HPF (Negative) 07/13/20 Unknown Urine Mucus Few /HPF 07/13/20 Unknown Assessment and Plan Assessment and plan: Prostatic abscess -Patient is on IV Levaquin -Urology consulted in the emergency department -Pain control Diabetes mellitus hyperglycemia -Patient is on sliding scale insulin, ADA diet, Accu-Chek DVT prophylaxis -On heparin Disposition; admit to medical floor. Advance Directives: Yes VTE prophylaxis?: Mechanical Contraindication Mechanical VTE Prophylaxis: Contraindicated Reason for no VTE Prophylaxis: Surgical contraindication Plan of care discussed with patient/family: Yes
[2020-07-13] MEDS: INSULIN LISPRO 100 UNIT/ML SUB-Q SCH ×3 (13:57→21:52)
--- NOTE | 2020-07-13 16:26 | Event Note ---
Date: 07/13/[address] Ho and he said we need to call him directly tomorrow morning if the patient need to be seen by him. They are not oncall. The ER physician stated in his note that consulted urology and will see as a consult.
[2020-07-14] MEDS: INSULIN LISPRO 100 UNIT/ML SUB-Q SCH ×5 (07:30→23:57)
[2020-07-14 08:09] LABS: Basophils # (Auto) 0.1 K/mm3 (0.0-0.1); Basophils % (Auto) 0.5 % (0.0-1.8); Eosinophils # (Auto) 0.4 K/mm3 (0.0-0.4); Eosinophils % (Auto) 3.8 % (0.0-4.3); Hematocrit 35.6 % (35.5-45.6); Hemoglobin 12.1 gm/dl (11.8-15.2); Lymphocytes # (Auto) 3.1 K/mm3 (1.2-5.4); Lymphocytes % (Auto) 27.7 % (13.4-35.0); Mean Corpuscular HGB Conc 34 % (32-34); Mean Corpuscular Volume 86 fl (84-94); Monocytes % (Auto) 9.4 % (0.0-7.3); Platelet Count 223 K/mm3 (140-440); Red Blood Count 4.17 M/mm3 (3.65-5.03); Red Cell Distribution Width 14.5 % (13.2-15.2)
[2020-07-14] MEDS: MORPHINE 2 MG/1 ML INJ IV PRN (08:24)
[2020-07-14 08:33] LABS: BUN/Creatinine Ratio 19; Blood Urea Nitrogen 17 mg/dL (9-20); Calcium 9.1 mg/dL (8.4-10.2); Hemolysis Index 5
--- NOTE | 2020-07-14 08:42 | Progress Note ---
Assessment and Plan reanna rectaurethral fistula pnematuria rec gastrograffin enema pelvic mri iv abs post 3 surgeries rec gen surgical follow up has urine coming out anus when voiding may need supra pubic tube Subjective Date of service: 07/14/20 Principal diagnosis: ?? abcess Objective - Constitutional Vitals: Vital Signs - 12hr 07/13/20 07/14/20 21:11 04:47 Temperature 98.3 F 98.2 F Pulse Rate 91 H 86 Respiratory 18 18 Rate Blood Pressure 133/69 136/81 O2 Sat by Pulse 96 98 Oximetry General appearance: Present: well-nourished - Neck Neck: supple - Respiratory Respiratory effort: normal Extremities: no ischemia - Gastrointestinal General gastrointestinal: Present: soft, non-tender Rectal Exam: other (fistula sites no localizedprostatic masses or fluctuation ) - Genitourinary Male genitourinary: normal (meatus narrow retractile testes ) - Labs CBC & Chem 7: 07/14/20 07:57 07/14/20 07:57 Labs: Abnormal lab results 07/13/20 07/13/20 07/13/20 Range/Units 03:49 13:55 17:08 WBC (4.5-11.0) K/mm3 [place] % (Auto) (0.0-7.3) % [place] # (Auto) (0.0-0.8) K/mm3 Sodium (137-145) mmol/L Glucose (75-100) mg/dL POC Glucose 161 H 186 H (70-105) mg/dL Hemoglobin A1c 9.2 H (4-6) % Urine WBC (Auto) (0.0-6.0) /HPF 07/13/20 07/13/20 07/14/20 Range/Units 21:09 Unknown 07:57 WBC 11.1 H (4.5-11.0) K/mm3 [place] % (Auto) 9.4 H (0.0-7.3) % [place] # (Auto) 1.0 H (0.0-0.8) K/mm3 Sodium (137-145) mmol/L Glucose (75-100) mg/dL POC Glucose 179 H (70-105) mg/dL Hemoglobin A1c (4-6) % Urine WBC (Auto) > 182.0 H (0.0-6.0) /HPF 07/14/20 Range/Units 07:57 WBC (4.5-11.0) K/mm3 [place] % (Auto) (0.0-7.3) % [place] # (Auto) (0.0-0.8) K/mm3 Sodium 134 L (137-145) mmol/L Glucose 163 H (75-100) mg/dL POC Glucose (70-105) mg/dL Hemoglobin A1c (4-6) % Urine WBC (Auto) (0.0-6.0) /HPF Medications & Allergies - Medications Allergies/Adverse Reactions: Allergies No Known Allergies Allergy (Verified 06/19/19 21:31) Home Medications: Home Medications Medication Instructions Recorded Confirmed Last Taken Type Tamsulosin [Flomax] 0.4 mg PO QDAY 12/01/17 07/13/20 06/05/20 History metFORMIN [Glucophage] 850 mg PO BID 07/13/20 07/13/20 07/12/20 History Active Medications: Generic Name Dose Route Start Last Admin Trade Name Freq PRN Reason Stop Dose Admin Dextrose 50 ml 07/13/20 10:30 Dextrose 50% In Water (25gm) 50 Ml Syringe IV Q30MIN PRN Hypoglycemia Protocol Levofloxacin/Dextrose 750 mg in 150 mls @ 100 mls/hr 07/14/20 08:00 07/14/20 08:00 Levaquin 750mg/150ml IV 100 mls/hr Q24H MANISHA Administration Protocol Insulin Human Lispro 0 unit 07/13/20 11:30 07/14/20 07:30 Insulin Lispro 100 Unit/Ml SUB-Q 3 unit ACHS MANISHA Administration Protocol Morphine Sulfate 2 mg 07/13/20 10:30 07/14/20 08:24 Morphine 2 Mg/1 Ml Inj IV 2 mg Q4H PRN Administration Pain, Moderate (4-6)
--- NOTE | 2020-07-14 13:04 | Progress Note ---
Assessment and Plan 59-year-old male with medical history significant for diabetes mellitus, perineal abscess status I&D in 2019 presented to the emergency department with complaints of pain in the rectal area for the last 4 days. Work-up in the emergency department showed that he has elevated WBC count and CAT scan of the pelvis showed prostate abscess. Urology was consulted in the emergency department, Patient was started with IV Levaquin, pain medications and admitted to the floor. A/P Prostatic abscess -Patient is on IV Levaquin -Urology consulted in the emergency department -Pain control Diabetes mellitus hyperglycemia -Patient is on sliding scale insulin, ADA diet, Accu-Chek Rectourethral fistula -Consulted general surgery and recommended patient may need to see colorectal surgeon as outpatient -Plan for suprapubic catheter on DVT prophylaxis -On heparin Daily clinical course: 07/14: Continue IV antibiotics, plan for suprapubic catheter placement on . Patient will need to follow-up with colorectal surgeon., Continue supportive care. Subjective Date of service: 07/14/20 Principal diagnosis: ?? abcess Interval history: Patient seen and examined. Medical records and medication list reviewed. No acute event overnight noted by the RN. Patient denies any chest pain or difficulty breathing. Patient is tolerating diet. Complains of lower abdominal pain, patient is having urine output through the anus Discussed plan of care at bedside with patient. Objective - Exam Narrative Exam: GENERAL: well-developed and well-nourished male lying on bed appeared to be in no discomfort. HEENT: Normocephalic. Atraumatic. No conjunctival congestion or icterus. Patient has moist mucous membranes. NECK: Supple. Trachea midline. CHEST/LUNGS: Clear to auscultated bilaterally, breathing nonlabored. No wheezes crackles or rhonchi. HEART/CARDIOVASCULAR: Regular in rate and rhythm. S1 and S2 positive. ABDOMEN: Abdomen is soft, suprapubic tenderness. Patient has normal bowel sounds. SKIN: There is no rash. Warm and dry. NEURO: No focal motor deficit. Follows command. MUSCULOSKELETAL: No joint effusion or tenderness. EXTRIMITY: No edema, no cyanosis or clubbing. PSYCH: Cooperative. - Constitutional Vitals: Vital Signs - 12hr 07/14/20 04:47 Temperature 98.2 F Pulse Rate 86 Respiratory 18 Rate Blood Pressure 136/81 O2 Sat by Pulse 98 Oximetry - Labs CBC & Chem 7: 07/16/20 07:13 07/16/20 07:13 Labs: Abnormal lab results 07/13/20 07/13/20 07/13/20 Range/Units 13:55 17:08 21:09 WBC (4.5-11.0) K/mm3 [place] % (Auto) (0.0-7.3) % [place] # (Auto) (0.0-0.8) K/mm3 Sodium (137-145) mmol/L Glucose (75-100) mg/dL POC Glucose 161 H 186 H 179 H (70-105) mg/dL 07/14/20 07/14/20 07/14/20 Range/Units 05:22 07:49 07:57 WBC 11.1 H (4.5-11.0) K/mm3 [place] % (Auto) 9.4 H (0.0-7.3) % [place] # (Auto) 1.0 H (0.0-0.8) K/mm3 Sodium (137-145) mmol/L Glucose (75-100) mg/dL POC Glucose 249 H 164 H (70-105) mg/dL 07/14/20 07/14/20 Range/Units 07:57 12:05 WBC (4.5-11.0) K/mm3 [place] % (Auto) (0.0-7.3) % [place] # (Auto) (0.0-0.8) K/mm3 Sodium 134 L (137-145) mmol/L Glucose 163 H (75-100) mg/dL POC Glucose 202 H (70-105) mg/dL
--- NOTE | 2020-07-14 13:17 | Consultation ---
History of Present Illness Consult date: 07/14/20 - History of present illness History of present illness: 59-year-old male presented to the emergency room with a 4-day history of perineal pain. He complains of urine leaking from under his scrotum for about the last 2 months. He has a history of diabetes and several perirectal abscess drainage procedures last year with frequent follow-up in wound care clinic until the end of last year. Patient was seen by urology in the emergency room, and they are working the patient up. Patient had a CT scan that showed findings consistent of possible recto- urethral fistula. Patient was also noted to have findings of small abscesses in the prostate. Past History Past Medical History: diabetes, other (Perianal abscess) Past Surgical History: Other (Incision and drainage of the perianal abscess, opening of urethral stricture) Social history: full code. denies: smoking, alcohol abuse, prescription drug abuse, IV drug use Family history: diabetes (Mother\) Medications and Allergies Allergies Allergy/AdvReac Type Severity Reaction Status Date / Time No Known Allergies Allergy Verified 06/19/19 21:31 Home Medications Medication Instructions Recorded Confirmed Last Taken Type Tamsulosin [Flomax] 0.4 mg PO QDAY 12/01/17 07/13/20 06/05/20 History metFORMIN [Glucophage] 850 mg PO BID 07/13/20 07/13/20 07/12/20 History Active Meds: Active Medications Dextrose (Dextrose 50% In Water (25gm) 50 Ml Syringe) 50 ml IV Q30MIN PRN; Protocol PRN Reason: Hypoglycemia Levofloxacin/Dextrose (Levaquin 750mg/150ml) 750 mg in 150 mls @ 100 mls/hr IV Q24H MANISHA; Protocol Last Admin: 07/14/20 08:00 Dose: 100 mls/hr Documented by: Insulin Human Lispro (Insulin Lispro 100 Unit/Ml) 0 unit SUB-Q ACHS MANISHA; Protocol Last Admin: 07/14/20 12:06 Dose: Not Given Documented by: Morphine Sulfate (Morphine 2 Mg/1 Ml Inj) 2 mg IV Q4H PRN PRN Reason: Pain, Moderate (4-6) Last Admin: 07/14/20 08:24 Dose: 2 mg Documented by: Review of Systems - Constitutional no weight loss, no weight gain, no fever, no chills - Cardiovascular no chest pain - Respiratory no cough - Gastrointestinal no abdominal pain, no nausea, no vomiting - Genitourinary discharge, urinary frequency Exam Vital Signs Temp Pulse Resp BP Pulse Ox 99.3 F 135 H 24 127/66 96 07/13/20 03:16 07/13/20 03:16 07/13/20 03:16 07/13/20 03:16 07/13/20 03:16 - General physical appearance Positive: well developed, no distress, no pain - Respiratory Positive: normal expansion, normal respiratory effort - Cardiovascular Heart Sounds: Present: S1 & S2 - Abdomen Abdomen: Present: soft. Absent: tender - Additional Findings skin defects at the base of the scrotum, draining clear fluid. possibly urine. Results - Labs 07/14/20 07:57 07/14/20 07:57 Abnormal lab results 07/13/20 07/13/20 07/13/20 Range/Units 13:55 17:08 21:09 WBC (4.5-11.0) K/mm3 [place] % (Auto) (0.0-7.3) % [place] # (Auto) (0.0-0.8) K/mm3 Sodium (137-145) mmol/L Glucose (75-100) mg/dL POC Glucose 161 H 186 H 179 H (70-105) mg/dL 07/14/20 07/14/20 07/14/20 Range/Units 05:22 07:49 07:57 WBC 11.1 H (4.5-11.0) K/mm3 [place] % (Auto) 9.4 H (0.0-7.3) % [place] # (Auto) 1.0 H (0.0-0.8) K/mm3 Sodium (137-145) mmol/L Glucose (75-100) mg/dL POC Glucose 249 H 164 H (70-105) mg/dL 07/14/20 07/14/20 Range/Units 07:57 12:05 WBC (4.5-11.0) K/mm3 [place] % (Auto) (0.0-7.3) % [place] # (Auto) (0.0-0.8) K/mm3 Sodium 134 L (137-145) mmol/L Glucose 163 H (75-100) mg/dL POC Glucose 202 H (70-105) mg/dL Diabetes panel 07/14/20 Range/Units 07:57 Sodium 134 L (137-145) mmol/L Potassium 4.2 (3.6-5.0) mmol/L Chloride 99.5 (98-107) mmol/L Carbon Dioxide 25 (22-30) mmol/L BUN 17 (9-20) mg/dL Creatinine 0.9 (0.8-1.3) mg/dL Glucose 163 H (75-100) mg/dL Calcium 9.1 (8.4-10.2) mg/dL Calcium panel 07/14/20 Range/Units 07:57 Calcium 9.1 (8.4-10.2) mg/dL Pituitary panel 07/14/20 Range/Units 07:57 Sodium 134 L (137-145) mmol/L Potassium 4.2 (3.6-5.0) mmol/L Chloride 99.5 (98-107) mmol/L Carbon Dioxide 25 (22-30) mmol/L BUN 17 (9-20) mg/dL Creatinine 0.9 (0.8-1.3) mg/dL Glucose 163 H (75-100) mg/dL Calcium 9.1 (8.4-10.2) mg/dL Adrenal panel 07/14/20 Range/Units 07:57 Sodium 134 L (137-145) mmol/L Potassium 4.2 (3.6-5.0) mmol/L Chloride 99.5 (98-107) mmol/L Carbon Dioxide 25 (22-30) mmol/L BUN 17 (9-20) mg/dL Creatinine 0.9 (0.8-1.3) mg/dL Glucose 163 H (75-100) mg/dL Calcium 9.1 (8.4-10.2) mg/dL - Imaging CT scan - pelvis: report reviewed, image reviewed Assessment and Plan 59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 Afebrile and stable. Pt will likely need out patient referral with [id number] surgeon as he will need a complex repair and possible collaboration with urology. Pt can see Dr. Nova as out patient if he would like for his evaluation, but will likely need to see specialist in the future. No general surgery intervention planned at this admission.
[2020-07-14] MEDS ORDERED: oxyCODONE /ACETAMINOPHEN 5-325MG TAB PO PRN (13:38)
--- NOTE | 2020-07-14 16:20 | Gastroenterology Consultation ---
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 this is a pleasant 59-year-old gentleman recent surgery for cranial abscess or returns for further leakage and complains of pain and leakage in the perennial area for the last 4 days Reports he finds that he is leaking urine in his bed GI is consulted due to consideration for possible urethra-colonic fistula Patient reports he is never had a colonoscopy Obtained/updated/reviewed patient's current medications Past History Past Medical History: diabetes, other (Perianal abscess) Past Surgical History: Other (Incision and drainage of the perianal abscess, opening of urethral stricture) Social history: full code. denies: smoking, alcohol abuse, prescription drug abuse, IV drug use Family history: diabetes (Mother\) Medications and Allergies Allergies Allergy/AdvReac Type Severity Reaction Status Date / Time No Known Allergies Allergy Verified 06/19/19 21:31 Home Medications Medication Instructions Recorded Confirmed Last Taken Type Tamsulosin [Flomax] 0.4 mg PO QDAY 12/01/17 07/13/20 06/05/20 History metFORMIN [Glucophage] 850 mg PO BID 07/13/20 07/13/20 07/12/20 History Active Meds: Active Medications Dextrose (Dextrose 50% In Water (25gm) 50 Ml Syringe) 50 ml IV Q30MIN PRN; Protocol PRN Reason: Hypoglycemia Levofloxacin/Dextrose (Levaquin 750mg/150ml) 750 mg in 150 mls @ 100 mls/hr IV Q24H MANISHA; Protocol Last Admin: 07/14/20 08:00 Dose: 100 mls/hr Documented by: Insulin Human Lispro (Insulin Lispro 100 Unit/Ml) 0 unit SUB-Q ACHS MANISHA; Protocol Last Admin: 07/14/20 11:30 Dose: 4 unit Documented by: Morphine Sulfate (Morphine 2 Mg/1 Ml Inj) 2 mg IV Q4H PRN PRN Reason: Pain, Moderate (4-6) Last Admin: 07/14/20 08:24 Dose: 2 mg Documented by: Oxycodone/Acetaminophen (Oxycodone /Acetaminophen 5-325mg Tab) 1 tab PO Q6H PRN PRN Reason: Pain, Moderate (4-6) Last Admin: 07/14/20 16:07 Dose: 1 tab Documented by: Review of Systems - Review of Systems All systems: negative (10 Systems reviewed and negative except as mentioned above in the history of present illness) Exam - Constitutional Vital Signs: Temp Pulse Resp BP Pulse Ox 98.1 F 83 16 139/75 98 07/14/20 12:32 07/14/20 12:32 07/14/20 12:32 07/14/20 12:32 07/14/20 12:32 General appearance: no acute distress - EENT Eyes: EOM intact - Neck Neck: supple - Respiratory Respiratory effort: normal - Cardiovascular Rhythm: regular - Gastrointestinal General gastrointestinal: Present: soft, tender, normal bowel sounds - Integumentary Integumentary: Present: dry - Musculoskeletal Musculoskeletal: normal - Neurologic Neurological: alert and oriented x3 - Psychiatric Psychiatric: appropriate mood/affect - Labs CBC & Chem 7: 07/14/20 07:57 07/14/20 07:57 Lab Results: Laboratory Results - last 24 hr 07/13/20 07/13/20 07/13/20 13:55 17:08 21:09 WBC RBC Hgb Hct MCV MCH MCHC RDW Plt Count Lymph % (Auto) [place] % (Auto) Eos % (Auto) Baso % (Auto) Lymph # (Auto) [place] # (Auto) Eos # (Auto) Baso # (Auto) Seg Neutrophils % Seg Neutrophils # Sodium Potassium Chloride Carbon Dioxide Anion Gap BUN Creatinine Estimated GFR BUN/Creatinine Ratio Glucose POC Glucose 161 H 186 H 179 H Calcium 07/14/20 07/14/20 07/14/20 05:22 07:49 07:57 WBC 11.1 H RBC 4.17 Hgb 12.1 Hct 35.6 MCV 86 MCH 29 MCHC 34 RDW 14.5 Plt Count 223 Lymph % (Auto) 27.7 [place] % (Auto) 9.4 H Eos % (Auto) 3.8 Baso % (Auto) 0.5 Lymph # (Auto) 3.1 [place] # (Auto) 1.0 H Eos # (Auto) 0.4 Baso # (Auto) 0.1 Seg Neutrophils % 58.6 Seg Neutrophils # 6.5 Sodium Potassium Chloride Carbon Dioxide Anion Gap BUN Creatinine Estimated GFR BUN/Creatinine Ratio Glucose POC Glucose 249 H 164 H Calcium 06/08/21 06/08/21 07:57 12:05 WBC RBC Hgb Hct MCV MCH MCHC RDW Plt Count Lymph % (Auto) [place] % (Auto) Eos % (Auto) Baso % (Auto) Lymph # (Auto) [place] # (Auto) Eos # (Auto) Baso # (Auto) Seg Neutrophils % Seg Neutrophils # Sodium 134 L Potassium 4.2 Chloride 99.5 Carbon Dioxide 25 Anion Gap 14 BUN 17 Creatinine 0.9 Estimated GFR > 60 BUN/Creatinine Ratio 19 Glucose 163 H POC Glucose 202 H Calcium 9.1 Assessment and Plan Regarding patient's abdominal pain recommend PPI Regarding question of urethra-colonic fistula, patient already has MRI pelvis which will help visualize, can also try Gastrografin enema if MRI is unrevealing No requirement for inpatient colonoscopy based upon presentation If patient requires colonoscopy prior to any pelvic surgery for routine screening purposes that can be performed if required Otherwise patient can just follow-up as an outpatient for routine screening colonoscopy - Patient Problems (1) Prostatic abscess Current Visit: Yes Status: Acute (2) Elevated WBC count Current Visit: No Status: Acute Qualifiers: Leukocytosis type: unspecified Qualified Code(s): D72.829 - Elevated white blood cell count, unspecified (3) Perineal abscess Current Visit: No Status: Acute
--- NOTE | 2020-07-15 07:44 | Gastroenterology Progress Note ---
Assessment and Plan Regarding patient's abdominal pain recommend PPI Regarding question of urethra-colonic fistula, patient already has MRI pelvis which will help visualize, results pending Can also try Gastrografin enema if MRI is unrevealing No requirement for inpatient colonoscopy based upon presentation from GI standpoint If patient requires colonoscopy prior to any pelvic surgery for routine screening purposes that can be performed if required Otherwise patient can just follow-up as an outpatient for routine screening colonoscopy GI will sign off otherwise, please call back with any questions - Patient Problems (1) Prostatic abscess Current Visit: Yes Status: Acute (2) Elevated WBC count Current Visit: No Status: Acute Qualifiers: Leukocytosis type: unspecified Qualified Code(s): D72.829 - Elevated white blood cell count, unspecified (3) Perineal abscess Current Visit: No Status: Acute Subjective Date of service: 07/15/20 Principal diagnosis: ?? abscess Interval history: Patient was in the restroom when I rounded on him Denies blood in stool Objective - Constitutional Vitals: Temp Pulse Resp BP Pulse Ox 98.7 F 72 20 169/87 97 07/15/20 05:19 07/15/20 05:19 07/15/20 05:19 07/15/20 05:19 07/15/20 05:19 General appearance: no acute distress - Labs CBC & Chem 7: 07/14/20 07:57 07/14/20 07:57 Labs: Laboratory Results - last 24 hr 07/14/20 07/14/20 07/14/20 05:22 07:49 07:57 WBC 11.1 H RBC 4.17 Hgb 12.1 Hct 35.6 MCV 86 MCH 29 MCHC 34 RDW 14.5 Plt Count 223 Lymph % (Auto) 27.7 [place] % (Auto) 9.4 H Eos % (Auto) 3.8 Baso % (Auto) 0.5 Lymph # (Auto) 3.1 [place] # (Auto) 1.0 H Eos # (Auto) 0.4 Baso # (Auto) 0.1 Seg Neutrophils % 58.6 Seg Neutrophils # 6.5 Sodium Potassium Chloride Carbon Dioxide Anion Gap BUN Creatinine Estimated GFR BUN/Creatinine Ratio Glucose POC Glucose 249 H 164 H Calcium 07/14/20 07/14/20 07/14/20 07:57 12:05 17:12 WBC RBC Hgb Hct MCV MCH MCHC RDW Plt Count Lymph % (Auto) [place] % (Auto) Eos % (Auto) Baso % (Auto) Lymph # (Auto) [place] # (Auto) Eos # (Auto) Baso # (Auto) Seg Neutrophils % Seg Neutrophils # Sodium 134 L Potassium 4.2 Chloride 99.5 Carbon Dioxide 25 Anion Gap 14 BUN 17 Creatinine 0.9 Estimated GFR > 60 BUN/Creatinine Ratio 19 Glucose 163 H POC Glucose 202 H 155 H Calcium 9.1 07/14/20 21:42 WBC RBC Hgb Hct MCV MCH MCHC RDW Plt Count Lymph % (Auto) [place] % (Auto) Eos % (Auto) Baso % (Auto) Lymph # (Auto) [place] # (Auto) Eos # (Auto) Baso # (Auto) Seg Neutrophils % Seg Neutrophils # Sodium Potassium Chloride Carbon Dioxide Anion Gap BUN Creatinine Estimated GFR BUN/Creatinine Ratio Glucose POC Glucose 187 H Calcium
[2020-07-15] MEDS: INSULIN LISPRO 100 UNIT/ML SUB-Q SCH ×4 (09:09→22:06)
--- NOTE | 2020-07-15 09:20 | Progress Note ---
Subjective Principal diagnosis: ?? abscess Interval history: resting well abd soft MRI pelvis pending possible cyst by Dr. Jhon corbett Objective - Constitutional Vitals: Vital Signs - 12hr 07/14/20 07/15/20 23:08 05:19 Temperature 98.6 F 98.7 F Pulse Rate 71 72 Respiratory 17 20 Rate Blood Pressure 132/63 169/87 O2 Sat by Pulse 98 97 Oximetry - Labs CBC & Chem 7: 07/14/20 07:57 07/14/20 07:57 Labs: Abnormal lab results 07/14/20 07/14/20 07/14/20 Range/Units 05:22 07:49 12:05 POC Glucose 249 H 164 H 202 H (70-105) mg/dL 07/14/20 07/14/20 Range/Units 17:12 21:42 POC Glucose 155 H 187 H (70-105) mg/dL Medications & Allergies - Medications Allergies/Adverse Reactions: Allergies No Known Allergies Allergy (Verified 06/19/19 21:31) Home Medications: Home Medications Medication Instructions Recorded Confirmed Last Taken Type Tamsulosin [Flomax] 0.4 mg PO QDAY 12/01/17 07/13/20 06/05/20 History metFORMIN [Glucophage] 850 mg PO BID 07/13/20 07/13/20 07/12/20 History Active Medications: Generic Name Dose Route Start Last Admin Trade Name Freq PRN Reason Stop Dose Admin Dextrose 50 ml 07/13/20 10:30 Dextrose 50% In Water (25gm) 50 Ml Syringe IV Q30MIN PRN Hypoglycemia Protocol Levofloxacin/Dextrose 750 mg in 150 mls @ 100 mls/hr 07/14/20 08:00 07/15/20 09:10 Levaquin 750mg/150ml IV 100 mls/hr Q24H MANISHA Administration Protocol Insulin Human Lispro 0 unit 07/13/20 11:30 07/15/20 09:09 Insulin Lispro 100 Unit/Ml SUB-Q 6 unit ACHS MANISHA Administration Protocol Morphine Sulfate 2 mg 07/13/20 10:30 07/14/20 08:24 Morphine 2 Mg/1 Ml Inj IV 2 mg Q4H PRN Administration Pain, Moderate (4-6) Oxycodone/Acetaminophen 1 tab 07/14/20 13:38 07/14/20 16:07 Oxycodone /Acetaminophen 5-325mg Tab PO 1 tab Q6H PRN Administration Pain, Moderate (4-6)
--- NOTE | 2020-07-15 10:39 | Magnetic Resonance Report ---
MRI PELVIS WITH AND WITHOUT CONTRAST HISTORY: Rectourethral fistula TECHNIQUE: Multisequence, multiplanar MRI before and after 18 cc of Clairscan intravenously. COMPARISON: CT pelvis with contrast 07/13/2020 FINDINGS: An approximate 1.8 cm urethral diverticulum is suspected near the base of the phallus. From the poste rior wall of this diverticulum a small fistulous tract measuring approximately 1.2 cm in length and 1 -2 mm in diameter is identified communicating to the anterior border of the lower rectum/upper anal r egion. This is best demonstrated on the postcontrast images. There is a small fluid collection in the right lateral prostate gland which measures up to 1.7 x 1.4 x 2.0 cm consistent with a second duodenal diverticulum or blind ending fistulous tract. The bladder is markedly distended and demonstrates diffuse wall thickening or trabeculation. No discr ete bladder mass is appreciated. The remaining visualized pelvic organs are unremarkable. No evidence for intrapelvic fluid collection, mass or adenopathy. The visualized osseous structures demonstrate normal bone marrow signal. 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 The fistula appe ars to arise from an approximate 1 cm urethral diverticulum. A second small urethral diverticulum or blind ending fistulous tract is also suggested within the right lateral prostate gland. Distended bladder with trabeculation of the bladder wall. Signer Name: Roderick Brantley Jr, MD Signed: 07/15/2020 10:35 AM Workstation Name: [id number]
--- NOTE | 2020-07-15 14:06 | Anesthesia Consultation ---
Anesthesia Consult and Med Hx Date of service: 07/16/20 - Airway Anesthetic Teeth Evaluation: Poor ROM Head & Neck: Adequate Mental/Hyoid Distance: Adequate Mallampati Class: Class III Intubation Access Assessment: Possibly Difficult - Pulmonary Exam CTA: Yes - Cardiac Exam Cardiac Exam: RRR - Pre-Operative Health Status ASA Pre-Surgery Classification: ASA3 Proposed Anesthetic Plan: General (No GAC or FHAC), MAC - Pulmonary Hx Smoking: Yes (former smoker quit 2007) Hx Asthma: No Hx Respiratory Symptoms: No COPD: No Hx Sleep Apnea: No (SANGEETA PRE SCREEN HIGH RISK) - Cardiovascular System Hx Hypertension: Yes Hx Coronary Artery Disease: No Hx Heart Attack/AMI: No Hx Percutaneous Transluminal Coronary Angioplasty (PTCA): No Hx Heart Murmur: No - Central Nervous System CVA: No - Gastrointestinal Hx Gastroesophageal Reflux Disease: Yes (controlled) - Endocrine Hx Renal Disease: No Hx End Stage Renal Disease: No Hx Liver Disease: No Hx Non-Insulin Dependent Diabetes: Yes Hx Thyroid Disease: No Hx Hyperthyroidism: No - Other Systems Hx Obesity: Yes (BMI 32)
--- NOTE | 2020-07-15 14:41 | Progress Note ---
Assessment and Plan 59-year-old male with medical history significant for diabetes mellitus, perineal abscess status I&D in 2019 presented to the emergency department with complaints of pain in the rectal area for the last 4 days. Work-up in the emergency department showed that he has elevated WBC count and CAT scan of the pelvis showed prostate abscess. Urology was consulted in the emergency department, Patient was started with IV Levaquin, pain medications and admitted to the floor. A/P Prostatic abscess -Patient is on IV Levaquin -Urology consulted in the emergency department -Pain control Diabetes mellitus hyperglycemia -Patient is on sliding scale insulin, ADA diet, Accu-Chek Rectourethral fistula -Consulted general surgery and recommended patient may need to see colorectal surgeon as outpatient -Plan for suprapubic catheter on DVT prophylaxis -On heparin Daily clinical course: 07/14: Continue IV antibiotics, plan for suprapubic catheter placement on . Patient will need to follow-up with colorectal surgeon, Continue supportive care. 07/15: Plan for suprapubic catheter placement tomorrow, continue IV antibiotics and supportive care. Subjective Date of service: 07/15/20 Principal diagnosis: ?? abscess Interval history: Patient seen and examined. Medical records and medication list reviewed. No acute event overnight noted by the RN. Patient denies any chest pain or difficulty breathing. Patient is tolerating diet. Complains of lower abdominal pain, patient is having urine output through the anus Discussed plan of care at bedside with patient. Objective - Exam Narrative Exam: GENERAL: well-developed and well-nourished male lying on bed appeared to be in no discomfort. HEENT: Normocephalic. Atraumatic. No conjunctival congestion or icterus. Patient has moist mucous membranes. NECK: Supple. Trachea midline. CHEST/LUNGS: Clear to auscultated bilaterally, breathing nonlabored. No wheezes crackles or rhonchi. HEART/CARDIOVASCULAR: Regular in rate and rhythm. S1 and S2 positive. ABDOMEN: Abdomen is soft, suprapubic tenderness. Patient has normal bowel sounds. SKIN: There is no rash. Warm and dry. NEURO: No focal motor deficit. Follows command. MUSCULOSKELETAL: No joint effusion or tenderness. EXTRIMITY: No edema, no cyanosis or clubbing. PSYCH: Cooperative. - Constitutional Vitals: Vital Signs - 12hr 07/15/20 07/15/20 05:19 11:40 Temperature 98.7 F 98.4 F Pulse Rate 72 76 Respiratory 20 16 Rate Blood Pressure 169/87 140/75 O2 Sat by Pulse 97 95 Oximetry - Labs CBC & Chem 7: 07/16/20 07:13 07/16/20 07:13 Labs: Abnormal lab results 07/14/20 07/14/20 07/15/20 Range/Units 17:12 21:42 08:55 POC Glucose 155 H 187 H 267 H (70-105) mg/dL 07/15/20 Range/Units 11:37 POC Glucose 208 H (70-105) mg/dL
[2020-07-15] MEDS: POLYETHYLENE GLYCOL 3350 17 GM POWDER PO SCH (20:25)
[2020-07-16 07:29] LABS: Hematocrit 37.7 % (35.5-45.6); Mean Corpuscular HGB Conc 35 % (32-34); Mean Corpuscular Volume 84 fl (84-94); Platelet Count 259 K/mm3 (140-440); Red Blood Count 4.47 M/mm3 (3.65-5.03); Red Cell Distribution Width 14.1 % (13.2-15.2)
[2020-07-16 07:48] LABS: BUN/Creatinine Ratio 18; Blood Urea Nitrogen 16 mg/dL (9-20); Calcium 9.4 mg/dL (8.4-10.2); Hemolysis Index 2
[2020-07-16] MEDS: INSULIN LISPRO 100 UNIT/ML SUB-Q SCH ×4 (08:24→22:05)
[2020-07-16 10:58] LABS: Total Cells Counted 100
[2020-07-16 11:00] LABS: Band Neutrophils # (Manual) 0.3 K/mm3; Platelet Estimate Consistent w Auto; RBC Morphology Normal
[2020-07-16] MEDS: POLYETHYLENE GLYCOL 3350 17 GM POWDER PO SCH (11:02)
[2020-07-16] MEDS ORDERED: LACTATED RINGERS 1,000 ML ONE (11:03)
[2020-07-16] MEDS ORDERED: MIDAZOLAM 2 MG/2 ML INJ IV ONE (11:19)
[2020-07-16] MEDS: LACTATED RINGERS 1,000 ML IV SCH ×2 (11:25→16:48)
[2020-07-16] MEDS ORDERED: LIDOCAINE MPF (2%) 20 MG/1 ML VIAL 5 ML ONE (11:34)
[2020-07-16] MEDS ORDERED: HYDROmorphone 1 MG/1 ML INJ ONE (11:34)
[2020-07-16] MEDS ORDERED: propofoL 200 MG/20 ML VIAL IV ONE (11:34)
[2020-07-16] MEDS ORDERED: fentaNYL 100 MCG/2 ML INJ IV PRN (12:05)
[2020-07-16] MEDS ORDERED: ONDANSETRON 4 MG/2 ML INJ IV PRN (12:05)
--- NOTE | 2020-07-16 12:05 | Anesthesia Day of Surgery ---
Anesthesia Day of Surgery - Day of Surgery Patient Examined: Yes Patient H&P Reviewed: Yes Patient is NPO: Yes
[2020-07-16] MEDS ORDERED: WATER FOR IRRIG STERILE 2000 ML IR ONE (12:40)
[2020-07-16] MEDS ORDERED: ONDANSETRON 4 MG/2 ML INJ ONE (12:45)
[2020-07-16] MEDS ORDERED: hydrALAZINE 20 MG/1 ML INJ IV PRN (13:18)
--- NOTE | 2020-07-16 14:26 | Post Operative Note ---
Date of procedure: 07/16/20 Pre-op diagnosis: fistula Post-op diagnosis: same Findings: severe strictur fistula Procedure: cysto dil spt Anesthesia: TERRANCE Surgeon: ANNA JEAN BAPTISTE Estimated blood loss: none Pathology: none Condition: stable Disposition: PACU
--- NOTE | 2020-07-16 15:27 | Fluoroscopy Report ---
CLINICAL INDICATION: SUPERPUBIC CYSTOGRAM ^BBROWN3 ^0.4 ^rectourethral fistula ^SUPERPUBIC CYSTOGRAM TECHNICAL DATA: C-arm imaging was performed 22 seconds fluoroscopy time and 8 static images performed. FINDINGS: C-arm imaging was performed for evaluation of the urinary bladder. IMPRESSION: C-arm utilization as noted Signer Name: Zaid Zarate MD Signed: 07/16/2020 3:23 PM Workstation Name: [id number]
--- NOTE | 2020-07-16 16:02 | Progress Note ---
Assessment and Plan 59-year-old male with medical history significant for diabetes mellitus, perineal abscess status I&D in 2019 presented to the emergency department with complaints of pain in the rectal area for the last 4 days. Work-up in the emergency department showed that he has elevated WBC count and CAT scan of the pelvis showed prostate abscess. Urology was consulted in the emergency department, Patient was started with IV Levaquin, pain medications and admitted to the floor. A/P Prostatic abscess -Patient is on IV Levaquin -Urology consulted in the emergency department -Pain control Diabetes mellitus hyperglycemia -Patient is on sliding scale insulin, ADA diet, Accu-Chek Rectourethral fistula -Consulted general surgery and recommended patient may need to see colorectal surgeon as outpatient -Plan for suprapubic catheter today DVT prophylaxis -On heparin Daily clinical course: 07/14: Continue IV antibiotics, plan for suprapubic catheter placement on . Patient will need to follow-up with colorectal surgeon, Continue supportive care. 07/15: Plan for suprapubic catheter placement tomorrow, continue IV antibiotics and supportive care. 07/16: Plan for suprapubic placement today, continue IV antibiotics. Discharge planning per urology. Patient need to resume resume care as outpatient with general surgeon and will need referral to colorectal surgeon as outpatient. Subjective Date of service: 07/16/20 Principal diagnosis: ?? abscess Interval history: Patient seen and examined. Medical records and medication list reviewed. No acute event overnight noted by the RN. Patient denies any chest pain or difficulty breathing. Patient is tolerating diet. planned for suprapubic catheter placement today Discussed plan of care at bedside with patient. Objective - Exam Narrative Exam: GENERAL: well-developed and well-nourished male lying on bed appeared to be in no discomfort. HEENT: Normocephalic. Atraumatic. No conjunctival congestion or icterus. Patient has moist mucous membranes. NECK: Supple. Trachea midline. CHEST/LUNGS: Clear to auscultated bilaterally, breathing nonlabored. No wheezes crackles or rhonchi. HEART/CARDIOVASCULAR: Regular in rate and rhythm. S1 and S2 positive. ABDOMEN: Abdomen is soft, suprapubic tenderness. Patient has normal bowel sounds. SKIN: There is no rash. Warm and dry. NEURO: No focal motor deficit. Follows command. MUSCULOSKELETAL: No joint effusion or tenderness. EXTRIMITY: No edema, no cyanosis or clubbing. PSYCH: Cooperative. - Constitutional Vitals: Vital Signs - 12hr 07/16/20 07/16/20 07/16/20 04:57 10:50 11:00 Temperature 98.2 F 97.7 F 98.3 F Pulse Rate 71 86 94 H Respiratory 20 18 20 Rate Blood Pressure 157/78 156/93 Blood Pressure 115/82 [Right] O2 Sat by Pulse 96 97 92 Oximetry 07/16/20 07/16/20 07/16/20 12:10 13:01 13:05 Temperature 98.3 F 97.2 F L Pulse Rate 94 H 82 81 Respiratory 20 16 16 Rate Blood Pressure 156/93 172/91 171/92 Blood Pressure [Right] O2 Sat by Pulse 92 98 98 Oximetry 07/16/20 07/16/20 07/16/20 13:10 13:15 13:23 Temperature Pulse Rate 77 78 77 Respiratory 16 16 Rate Blood Pressure 159/90 168/94 168/94 Blood Pressure [Right] O2 Sat by Pulse 99 99 Oximetry 07/16/20 07/16/20 07/16/20 13:30 13:45 13:50 Temperature 97 F L Pulse Rate 82 81 83 Respiratory 16 16 14 Rate Blood Pressure 168/78 140/74 130/73 Blood Pressure [Right] O2 Sat by Pulse 98 98 98 Oximetry - Labs CBC & Chem 7: 07/16/20 07:13 07/16/20 07:13 Labs: Abnormal lab results 07/15/20 07/15/20 07/16/20 Range/Units 16:32 21:48 07:13 WBC 11.3 H (4.5-11.0) K/mm3 MCHC 35 H (32-34) % Lymphocytes % (Manual) 37.0 H (13.4-35.0) % Eosinophils % (Manual) 8.0 H (0.0-4.3) % Eosinophils # (Manual) 0.9 H (0.0-0.4) K/mm3 Sodium (137-145) mmol/L Glucose (75-100) mg/dL POC Glucose 157 H 176 H (70-105) mg/dL 07/16/20 07/16/20 07/16/20 Range/Units 07:13 07:26 11:26 WBC (4.5-11.0) K/mm3 MCHC (32-34) % Lymphocytes % (Manual) (13.4-35.0) % Eosinophils % (Manual) (0.0-4.3) % Eosinophils # (Manual) (0.0-0.4) K/mm3 Sodium 135 L (137-145) mmol/L Glucose 165 H (75-100) mg/dL POC Glucose 190 H 154 H (70-105) mg/dL 07/16/20 Range/Units 13:11 WBC (4.5-11.0) K/mm3 MCHC (32-34) % Lymphocytes % (Manual) (13.4-35.0) % Eosinophils % (Manual) (0.0-4.3) % Eosinophils # (Manual) (0.0-0.4) K/mm3 Sodium (137-145) mmol/L Glucose (75-100) mg/dL POC Glucose 143 H (70-105) mg/dL
[2020-07-16] MEDS: MORPHINE 2 MG/1 ML INJ IV PRN (16:34)
--- NOTE | 2020-07-16 18:17 | Operative Report ---
DATE OF SURGERY: 07/16/2020 PREOPERATIVE DIAGNOSIS: Rectourethral fistula. 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 PROCEDURES: Cystoscopy, urethral dilatation, suprapubic tube insertion. SURGEON: Dr. Osorio. ANESTHESIA: General. FINDINGS: This is a gentleman with fecaluria and pneumaturia and urine coming out the rectum as well with multiple fistulas, diabetic and he now presents for treatment. DESCRIPTION OF PROCEDURE: The patient was brought to the operating room and placed on the operating table. Following induction of anesthesia, placed in lithotomy position, prepped and draped in the usual sterile fashion. The meatus was pinpoint. It was dilated. The urethra was strictured. 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 We dilated the urethra as best we could under fluoroscopic guidance once the wire was placed to 26-[place]an. Cystoscopy showed a dirty urine, so we did not distend the bladder much. There were inflammatory changes at the prostatic urethra. I could not see a definitive fistula tract. At this point, the [place] was placed under fluoroscopic guidance and we cut down and placed a 20-[place] Antonio catheter. The patient tolerated the procedure well. We put about 15 mL in the balloon and secured it with silk and placed a 20 [place] catheter in the urethra because the urethra was so scarred. The patient tolerated the procedure well and brought to recovery room. No blood loss and in stable condition. TID: [id number] RECEIPT: [id number] ELLA/FERDINAND/CIARA
[2020-07-17] MEDS: LACTATED RINGERS 1,000 ML IV SCH (07:10)
[2020-07-17] MEDS: INSULIN LISPRO 100 UNIT/ML SUB-Q SCH ×3 (07:41→17:41)
[2020-07-17] MEDS: POLYETHYLENE GLYCOL 3350 17 GM POWDER PO SCH (09:51)
--- NOTE | 2020-07-17 15:41 | Discharge Summary ---
Providers - Providers Date of Admission: 07/13/20 11:33 Date of discharge: 07/17/20 Attending physician: HELENA ALFORD 07/13/20 10:05 Consult to Physician [CONS] Urgent Comment: Consulting Provider: ANNA JEAN BAPTISTE Physician Instructions: Reason For Exam: prostatic abscesses 07/14/20 05:10 Consult to Wound/ET Nurse [CONS] Routine Reason For Exam: wound eval on perineal absess 07/14/20 09:05 Consult to Physician [CONS] Routine Comment: Consulting Provider: BURTON PRINCE Physician Instructions: Reason For Exam: rectourethral fistulla 07/14/20 09:08 Consult to Physician [CONS] Routine Comment: Consulting Provider: CRISTINA LOPEZ Physician Instructions: Reason For Exam: rectourethral fistulla Primary care physician: ISOBUTYLENE OPERATOR CHIEF Hospitalization Condition: Stable Pertinent studies: Pelvis CT, Pelvis MRI, cystogram Hospital course: 59-year-old male with medical history significant for diabetes mellitus, perineal abscess status I&D in 2019 presented to the emergency department with complaints of pain in the rectal area for the last 4 days. Work-up in the emergency department showed that he has elevated WBC count and CAT scan of the pelvis showed prostate abscess. Urology was consulted in the emergency department, Patient was started with IV Levaquin, pain medications and admitted to the floor. Daily clinical course: 07/14: Continue IV antibiotics, plan for suprapubic catheter placement on . Patient will need to follow-up with colorectal surgeon for Rectourethral fistula per GS recommendation, Continue supportive care. 07/15: Plan for suprapubic catheter placement tomorrow by urologist, continue IV antibiotics and supportive care. 07/16: Plan for suprapubic placement today, continue IV antibiotics. Discharge planning per urology. Patient need to resume resume care as outpatient with general surgeon and will need referral to colorectal surgeon as outpatient. 07/17: patient clinically appears stable, s/p suprapubic catheter placement. Patient was instructed to f/u with urology and colorectal surgeon as outpt following discharge. Will complete abx as outpt. Disposition: HOME HEALTH CARE SERVICE Final Discharge Diagnosis (Prints w/discharge instructions): Prostatic abscess with UTI. Diabetes mellitus hyperglycemia with a1c ~9. Rectourethral fistula s/p suprapubic catheter placement Time spent for discharge: 34 minutes Core Measure Documentation - Palliative Care Palliative Care/ Comfort Measures: Not Applicable - Core Measures Any of the following diagnoses?: none Exam - Physical Exam Narrative exam: GENERAL: well-developed and well-nourished male lying on bed appeared to be in no discomfort. HEENT: Normocephalic. Atraumatic. No conjunctival congestion or icterus. Patient has moist mucous membranes. NECK: Supple. Trachea midline. CHEST/LUNGS: Clear to auscultated bilaterally, breathing nonlabored. No wheezes crackles or rhonchi. HEART/CARDIOVASCULAR: Regular in rate and rhythm. S1 and S2 positive. ABDOMEN: Abdomen is soft, suprapubic tenderness. Patient has normal bowel sounds. SKIN: There is no rash. Warm and dry. NEURO: No focal motor deficit. Follows command. MUSCULOSKELETAL: No joint effusion or tenderness. EXTRIMITY: No edema, no cyanosis or clubbing. PSYCH: Cooperative. - Constitutional Vitals: Temp Pulse Resp BP Pulse Ox 99.3 F 104 H 18 140/78 97 07/17/20 10:51 07/17/20 10:51 07/17/20 10:51 07/17/20 10:51 07/17/20 10:51 Plan Activity: advance as tolerated Weight Bearing Status: Weight Bear as Tolerated Diet: low fat, low salt Additional Instructions: Follow-up with Dr. Capps in 1 week. Need outpatient colorectal surgeon referral. Follow-up with urologist in 1 week Follow up with: PRIMARY CAREMD [Primary Care Provider] - 3-5 Days ADELA CAPPS MD [Staff Physician] - 7 Days ANNA JEAN BAPTISTE MD [Staff Physician] - 7 Days Prescriptions: levoFLOXacin [Levaquin] 750 mg PO QDAY #5 tablet polyethylene glycoL 3350 [Miralax 3350] 17 gm PO QDAY 14 Days oxyCODONE /ACETAMINOPHEN [Percocet 5/325 mg] 1 tab PO Q6H PRN #14 tablet PRN Reason: Pain, Moderate (4-6)
[2020-07-17 17:48] VITALS: BP 132/77
== END 2020-07-17 17:55 | disposition home or self-care (01) | DRG 699 ==
LOC: ED 02:51 → 3A 10:08 → OBSVTOIN 11:33
PROVIDERS: ADMIT Internal Medicine; ATTEND Internal Medicine
PROC: 0T7D8ZZ Dilation of Urethra, Via Natural or Artificial Opening Endoscopic (ICD-10-PCS; principal; 2020-07-16)
PROC: BT151ZZ Fluoroscopy of Urethra using Low Osmolar Contrast (ICD-10-PCS; 2020-07-16)
DX: N36.0 Urethral fistula (principal); N41.2 Abscess of prostate; R65.10 Systemic inflammatory response syndrome (SIRS) of non-infectious origin without acute organ dysfunction; E11.65 Type 2 diabetes mellitus with hyperglycemia; I10 Essential (primary) hypertension; K21.9 Gastro-esophageal reflux disease without esophagitis; D72.829 Elevated white blood cell count, unspecified; E66.9 Obesity, unspecified; Z87.891 Personal history of nicotine dependence; Z83.3 Family history of diabetes mellitus; Z68.32 Body mass index [BMI] 32.0-32.9, adult
CPT/HCPCS: 36415; 72193; 72197; 74430; 80048; 81001; 82140; 82550; 82962; 83036; 83735; 85007; 85025; 85027; 87040; 96361; 96374; G0378; A4217; A9575; C1726; J0360; J1170; J1815; J1956; J2250; J2270; J2405; J2704; J3010; J7120; Q9967

== ENCOUNTER 2020-07-29 13:23 | Outpatient (CLI) | payer BC ==
[2020-07-29] MEDS ORDERED: LIDOCAINE (4%) 40 MG/ML TOPICAL SOLN 50 ML BOTTLE TP ONE (13:51)
== END 2020-07-29 13:24 | disposition home or self-care (01) ==
LOC: WOUND 13:23
PROVIDERS: ATTEND Surgery
DX: T81.89XA Other complications of procedures, not elsewhere classified, initial encounter (principal); S31.30XA Unspecified open wound of scrotum and testes, initial encounter; E11.628 Type 2 diabetes mellitus with other skin complications; I10 Essential (primary) hypertension; Y83.8 Other surgical procedures as the cause of abnormal reaction of the patient, or of later complication, without mention of misadventure at the time of the procedure; X58.XXXA Exposure to other specified factors, initial encounter; Y93.89 Activity, other specified; Y92.89 Other specified places as the place of occurrence of the external cause; Y99.8 Other external cause status
CPT/HCPCS: 99212; G0463

== ENCOUNTER 2021-01-27 19:22 | Emergency (ER) | payer BC ==
[2021-01-28 04:37] LABS: Basophils # (Auto) 0.1 K/mm3 (0.0-0.1); Basophils % (Auto) 0.4 % (0.0-1.8); Eosinophils % (Auto) 0.2 % (0.0-4.3); Hematocrit 37.8 % (35.5-45.6); Hemoglobin 12.5 gm/dl (11.8-15.2); Lymphocytes # (Auto) 2.1 K/mm3 (1.2-5.4); Lymphocytes % (Auto) 14.5 % (13.4-35.0); Mean Corpuscular HGB Conc 33 % (32-34); Mean Corpuscular Volume 86 fl (84-94); Monocytes # (Auto) 1.2 K/mm3 (0.0-0.8); Monocytes % (Auto) 8.2 % (0.0-7.3); Platelet Count 151 K/mm3 (140-440); Red Blood Count 4.42 M/mm3 (3.65-5.03); Red Cell Distribution Width 13.9 % (13.2-15.2)
[2021-01-28 04:54] LABS: BUN/Creatinine Ratio 23; Blood Urea Nitrogen 28 mg/dL (9-20); Calcium 8.5 mg/dL (8.4-10.2); Hemolysis Index 3
--- NOTE | 2021-01-28 07:51 | Event Note ---
Event Note: This patient is medically stable and appropriate for treatment in a psychiatric setting, ie. their behavioral disturbance is unlikely to be due to a medical condition or physical trauma, and their medical/surgical treatment for any concomitant conditions is within the capabilities of the receiving facility.
[2021-01-28 07:55] VITALS: BP 158/86
--- NOTE | 2021-01-28 07:57 | Emergency Department Report ---
ED Male HPI - General Chief complaint: Urogenital-Male Stated complaint: HOLDING URINE Time Seen by Provider: 01/28/21 04:11 Source: patient Mode of arrival: Ambulatory Limitations: No Limitations - History of Present Illness Initial comments: 60-year-old Persian male with a suprapubic catheter placed presents emergency department complaining of inability to urinate with utilization of the suprapubic catheter. Reports that suprapubic pressure and urgency urinate. No fever, chills, sweats. No back pain, no chest pain palpitation no nausea no vo miting, no penile bleeding or discharge reported. Would like to have this catheter evaluated Chromelin so that he can function properly Consistency: constant Improves with: urination Worsens with: other (Will assist with position and direct pressure to the suprapubic region.) urinary retention. denies: discharge, nausea/vomiting, incontinence - Related Data Home Medications Medication Instructions Recorded Confirmed Last Taken Tamsulosin [Flomax] 0.4 mg PO QDAY 12/01/17 07/13/20 06/05/20 metFORMIN [Glucophage] 850 mg PO BID 07/13/20 07/13/20 07/12/20 Previous Rx's Medication Instructions Recorded Last Taken Type levoFLOXacin [Levaquin] 750 mg PO QDAY #5 tablet 07/17/20 Unknown Rx oxyCODONE /ACETAMINOPHEN [Percocet 1 tab PO Q6H PRN #14 tablet 07/17/20 Unknown Rx 5/325 mg] polyethylene glycoL 3350 [Miralax 17 gm PO QDAY 14 Days 07/17/20 Unknown Rx 3350] Nitrofurantoin [place]/M-Cryst 100 mg PO Q12HR #14 capsule 01/28/21 Unknown Rx [Macrobid CAP] Allergies Allergy/AdvReac Type Severity Reaction Status Date / Time No Known Allergies Allergy Verified 01/27/21 21:40 ED Review of Systems ROS: Stated complaint: HOLDING URINE Other details as noted in HPI Comment: All other systems reviewed and negative ED Past Medical Hx - Past Medical History Hx Hypertension: Yes Hx Heart Attack/AMI: No Hx Congestive Heart Failure: No Hx Diabetes: Yes Hx GERD: Yes (WELL CONTROLLED) Hx Liver Disease: No Hx Renal Disease: No Hx Arthritis: No Hx Asthma: No Hx COPD: No Hx Tuberculosis: No Hx HIV: No Additional medical history: anal fissures. anal abcess - Surgical History Additional Surgical History: circumcised 03/2019. anal sx x 4 - Social History Smoking Status: Never Smoker - Medications Home Medications: Home Medications Medication Instructions Recorded Confirmed Last Taken Type Tamsulosin [Flomax] 0.4 mg PO QDAY 12/01/17 07/13/20 06/05/20 History metFORMIN [Glucophage] 850 mg PO BID 07/13/20 07/13/20 07/12/20 History levoFLOXacin [Levaquin] 750 mg PO QDAY #5 tablet 07/17/20 Unknown Rx oxyCODONE /ACETAMINOPHEN [Percocet 1 tab PO Q6H PRN #14 tablet 07/17/20 Unknown Rx 5/325 mg] polyethylene glycoL 3350 [Miralax 17 gm PO QDAY 14 Days 07/17/20 Unknown Rx 3350] Nitrofurantoin [place]/M-Cryst 100 mg PO Q12HR #14 capsule 01/28/21 Unknown Rx [Macrobid CAP] ED Physical Exam - General Limitations: No Limitations General appearance: alert, in no apparent distress - Head Head exam: Present: atraumatic, normocephalic - Eye Eye exam: Present: normal appearance, PERRL, EOMI - ENT ENT exam: Present: mucous membranes moist - Neck Neck exam: Present: normal inspection - Respiratory Respiratory exam: Present: normal lung sounds bilaterally. Absent: respiratory distress - Cardiovascular Cardiovascular Exam: Present: regular rate, normal rhythm. Absent: systolic murmur, diastolic murmur, rubs, gallop - GI/Abdominal GI/Abdominal exam: Present: soft, normal bowel sounds. Absent: distended (No distention is appreciated minimal discomfort on the suprapubic region.) - Rectal Rectal exam: Present: deferred - Extremities Exam Extremities exam: Present: normal inspection - Back Exam Back exam: Present: normal inspection - Neurological Exam Neurological exam: Present: alert, oriented X3 - Psychiatric Psychiatric exam: Present: normal affect, normal mood - Skin Skin exam: Present: warm, dry, intact, normal color. Absent: rash ED Course Vital Signs 01/27/21 21:36 Temperature 98.6 F Pulse Rate 131 H Respiratory 18 Rate Blood Pressure 167/99 O2 Sat by Pulse 97 Oximetry ED Medical Decision Making - Lab Data Result diagrams: 01/28/21 04:25 01/28/21 04:25 - Medical Decision Making This is a patient is emerged department with symptoms consistent with a UTI/Antonio catheter dysfunction. He is well-appearing with low suspicion for acute pyelonephritis and the lack of fever, CVA tenderness, hematuria suprapubic catheter was evaluated. To be normal in appearance. Doreen was able to urinate while in the emergency department with no complication and no further This patient presents to the emergency department with symptoms consistent with acute uncomplicated cystitis. No systemic symptoms. Not septic. She is well- appearing. Low suspicion for acute pyelonephritis given the lack of fever, CVA tenderness, or systemic features. Low suspicion for for kidney stone or infected stone. Difficulty was able to urinate while here in the emergency department without any complications in his symptoms resolved after doing so. Was" and was treated for infection as there was no no pelvic symptoms. Vital signs improve heart rate slightly elevated but 109 at the time of discharge although he is afebrile no acute distress Critical care attestation.: If time is entered above; I have spent that time in minutes in the direct care of this critically ill patient, excluding procedure time. ED Disposition Clinical Impression: UTI (urinary tract infection), Suprapubic catheter dysfunction Disposition: 01 HOME / SELF CARE / HOMELESS Is pt being admited?: No Does the pt Need Aspirin: No Condition: Stable Instructions: Urinalysis Test, Suprapubic Catheter Replacement, Urinary Tract Infection, Adult, Suprapubic Catheter Home Guide Additional Instructions: Seen emergency department today for suprapubic catheter dysfunction. Please be sure to follow-up with your urologist your primary care provider for further evaluation of suprapubic pubic catheter adhere to the self-care guidelines. Today you were able to urinate normally throughout your urethra which may be an indication that the suprapubic catheter him may no longer be needed please discuss this further with your primary care provider or urologist for definitive treatment options regarding the suprapubic catheter Prescriptions: Nitrofurantoin [place]/M-Cryst [Macrobid CAP] 100 mg PO Q12HR #14 capsule Referrals: PRIMARY CARE, [Primary Care Provider] - 3-5 Days
== END 2021-01-28 07:57 | disposition home or self-care (01) ==
LOC: ED 19:22
DX: N39.0 Urinary tract infection, site not specified (principal); T83.518A Infection and inflammatory reaction due to other urinary catheter, initial encounter; I10 Essential (primary) hypertension
CPT/HCPCS: 36415; 80048; 85025; 99283